=== PATIENT | female | born 1985 | race Caucasian/White ===

== ENCOUNTER 2020-11-03 15:47 | Outpatient (REF) | payer OTHER, SELFPAY ==
[2020-11-03 16:24] LABS: MANUAL DIFF FLAG NO
[2020-11-03 16:39] LABS: Basophils Absolute Auto 0.1 X10*3/uL (0.0-0.2); Basophils Percent Auto 0.4 % (0-2); Eosinophils Absolute Auto 0.2 X10*3/uL (0.0-0.4); Eosinophils Percent Auto 1.5 % (0-4); Hematocrit 40.9 % (37-47); Imm Gran Abs Auto 0.08 X10*3/uL (0.00-0.03); Imm Gran Pct Auto 0.7 % (0.0-0.4); Lymphocytes Absolute Auto 3.7 X10*3/uL (1.2-4.9); Mean Corpuscular HGB Conc 31.8 g/dl (31.0-35.0); Mean Corpuscular Hemoglobin 28.8 pg (27.0-33.0); Mean Corpuscular Volume 90.7 fL (80-98); Mean Platelet Volume 9.7 fL (9.4-12.3); Monocytes Absolute Auto 1.1 X10*3/uL (0.1-1.2); Monocytes Percent Auto 9.9 % (2-11); Neutrophils Absolute Auto 6.1 X10*3/uL (2.0-8.3); Neutrophils Percent Auto 54.5 % (45-73); Platelet Count 320 X10*3/uL (160-400); Red Blood Count 4.51 X10*6/uL (4.20-5.50); Red Cell Distribution Width 13.9 % (11.0-16.0); White Blood Count 11.2 X10*3/uL (4.8-10.8)
[2020-11-03 17:16] LABS: Alanine Aminotransferase 16 U/L (0-31); Albumin Level 4.2 g/dL (3.5-5.0); Alkaline Phosphatase 76 U/L (39-117); Anion Gap 14 (12-20); Aspartate Amino Transferase 13 U/L (5-31); Bilirubin Total 0.2 mg/dL (0.0-1.0); Blood Urea Nitrogen 11 mg/dL (9-16); Calcium 9.3 mg/dL (8.4-10.2); Carbon Dioxide 26 mmol/L (22-29); Chloride 102 mmol/L (96-108); Cholesterol 235 mg/dL; Estimated Glomerular Filt Rate > 60; Glucose Random 87 mg/dL (60-115); HDL Cholesterol 36 mg/dL; Potassium 4.1 mmol/l (3.3-5.1); Sodium 138 mmol/L (135-145); Total Protein 7.2 g/dL (6.5-8.0); Triglycerides 620 mg/dL
[2020-11-03 17:25] LABS: Thyroid Stimulating Hormone 1.77 uIU/mL (0.32-4.0)
== END 2020-11-03 15:48 | disposition home or self-care (01) ==
LOC: HO.LAB 15:47
PROVIDERS: PCP Internal Medicine; Visit Provider Internal Medicine
DX: Z00.00 Encounter for general adult medical examination without abnormal findings (principal); E78.2 Mixed hyperlipidemia; I10 Essential (primary) hypertension; R19.5 Other fecal abnormalities; Z13.31 Encounter for screening for depression
CPT/HCPCS: 36415; 80053; 80061; 84443; 85025

== ENCOUNTER 2020-11-15 10:07 | Outpatient (REF) | payer OTHER, SELFPAY ==
[2020-11-16 10:27] LABS: C. trachomatis RNA TMA NOT DETECTED (NOT DETECTED); N. gonorrhoeae RNA TMA NOT DETECTED (NOT DETECTED)
== END 2020-11-15 10:08 | disposition home or self-care (01) ==
LOC: HO.LAB 10:07
PROVIDERS: PCP Internal Medicine; Visit Provider Obstetrics & Gynecology
DX: Z30.09 Encounter for other general counseling and advice on contraception (principal)
CPT/HCPCS: 36415; 87491; 87591; 99212

== ENCOUNTER 2020-11-29 15:17 | Outpatient (REF) | payer OTHER, SELFPAY ==
[2020-11-29 16:31] LABS: HCG Quantitative < 2 mIU/mL
== END 2020-11-29 15:18 | disposition home or self-care (01) ==
LOC: HO.LAB 15:17
PROVIDERS: PCP Internal Medicine; Visit Provider Advanced Practice Midwife
DX: O20.0 Threatened abortion (principal); N92.6 Irregular menstruation, unspecified; Z3A.00 Weeks of gestation of pregnancy not specified; Z88.0 Allergy status to penicillin; Z39.1 Encounter for care and examination of lactating mother
CPT/HCPCS: 36415; 84702; 99212

== ENCOUNTER 2021-01-01 09:05 | Day surgery (SDC) | payer OTHER, SELFPAY ==
[2020-12-26 10:24] VITALS: BMI 33.8
--- NOTE | 2020-12-29 09:35 | HO.ANESPROP2 ---
Documented by User: Mel García 12/29/20 09:39 HPI - Anesthesia Eval Consult details Narrative: 35yo F for Colonoscopy Current PMFSH Active Problems Active Problems: All Active Problems (Updated 12/26/20 @ 10:25 by Katy Concepcion) Family planning (Acute) Lactating mother (Acute) Past Medical History Medical History (Updated 12/26/20 @ 10:25 by Katy Concepcion) Hx of renal calculi Family History Family History Maternal Aunt Uterine cancer Surgical History Surgical History (Updated 12/26/20 @ 10:25 by Katy Concepcion) Hx of hemorrhoidectomy Social History Social History Smoking Status: Never smoker Use of substances other than those prescribed or required for medical reasons: No Advance Directives Information Provided: No Meds Allergies Allergy/AdvReac Type Severity Reaction Status Date / Time penicillin G [Penicillin G] Allergy Severe DIFFICULTY Verified 11/29/20 15:30 BREATHING penicillin V Allergy Severe shortness Verified 12/26/20 10:27 of breath, anaphylaxis Home Medications Medication Instructions Recorded Confirmed Last Taken Type prenat.vits,dejan,ood-oabf-mpwly 1 tab PO DAILY 11/15/20 12/26/20 Unknown History Exam Exam Date and Time: December 29, 2020 0936 Height,Weight and Vital Signs: Height 5 ft 2 in Weight 83.915 kg Pertinent Lab Results Pertinent Lab Results: Laboratory Tests 11/03/20 11/03/20 16:05 16:05 WBC 11.2 H Hgb 13.0 Hct 40.9 Plt Count 320 Sodium 138 Potassium 4.1 Chloride 102 Carbon Dioxide 26 BUN 11 Creatinine 0.74 Assessment and Plan Assessment Anesthesia Assessment: Chart Reviewed Documented by User: Naren Ocampo MD 01/01/21 09:52 PMFSH Past Medical History Medical History (Updated 12/26/20 @ 10:25 by Katy Concepcion) Hx of renal calculi Family History Family History Maternal Aunt Uterine cancer Surgical History Surgical History (Updated 12/26/20 @ 10:25 by Katy Concepcion) Hx of hemorrhoidectomy Social History Social History Smoking Status: Never smoker Use of substances other than those prescribed or required for medical reasons: No Advance Directives Information Provided: No Meds Allergies Allergy/AdvReac Type Severity Reaction Status Date / Time penicillin G [Penicillin G] Allergy Severe DIFFICULTY Verified 11/29/20 15:30 BREATHING penicillin V Allergy Severe shortness Verified 12/26/20 10:27 of breath, anaphylaxis Home Medications Medication Instructions Recorded Confirmed Last Taken Type prenat.vits,dejan,dvr-uwkf-zvqnm 1 tab PO DAILY 11/15/20 12/26/20 Unknown History Exam Airway Mallampati Class: I TM Dist: >3cm Neck ROM: Full Loose/Missing/Broken Teeth: No Heart: RRR Lungs: NL Assessment and Plan Assessment Anesthesia Assessment: Anesthesia Plan Discussed and Chart Reviewed Final Anesthetic Review NPO: Yes ASA Class: II Final Preanesthetic Review: No Changes in Pt Med Stat, Meds/Allgs Chart Reviewed, Consent Obtained/Reviewed and Anes Risks/Benef Reviewed Patient Risk: Low Procedure Risk: Low Anesthetic Plan Anesthetic Plan: MAC: Disposition: Standard PACU
[2021-01-01 09:39] VITALS: BP 125/69; PULSE 74; RESP 16; TEMP 36.9; O2SAT 97
[2021-01-01 09:49] LABS: UPreg QC Valid YES; Urine Pregnancy NEGATIVE (NEGATIVE)
[2021-01-01] MEDS: Lactated Ringers 1,000 ML 100 ML IVCONT (10:23)
[2021-01-01 11:01] VITALS: BP 102/60; PULSE 74; RESP 18; TEMP 37; O2SAT 98
--- NOTE | 2021-01-01 11:05 | PM.OP ---
Brief Operative Note Date of Service: 01/01/21 Pre-op diagnosis: Rectal bleeding, diarrhea Post-op diagnosis: other (Internal hemorrhoids, R/O microscopic colitis) Procedure: Colonoscopy to the cecum and TI with biopsies Surgeon: Landon Vega Anesthesia: MAC Estimated blood loss (mL): 3.0 Pathology: other (A. Terminal ileum B. Ascending colon C. Descending colon) Condition: stable Disposition: PACU
[2021-01-01 11:16] VITALS: BP 114/46; PULSE 75; RESP 18; TEMP 36.8; O2SAT 99
--- NOTE | 2021-01-01 11:18 | OP_ITS ---
SURGEON: Landon Vega MD INDICATIONS: The patient presents for evaluation of diarrhea and hematochezia. Full consent has been obtained from her for this, including risks of bleeding and perforation. PREOPERATIVE DIAGNOSIS: POSTOPERATIVE DIAGNOSIS: PROCEDURE PERFORMED: Colonoscopy to the cecum and terminal ileum with biopsies. ESTIMATED BLOOD LOSS: COMPLICATIONS: ANESTHESIA: Monitored anesthesia care. ASSISTANTS: SPECIMENS: PREOPERATIVE DIAGNOSES: Diarrhea and hematochezia. POSTOPERATIVE DIAGNOSES: Diarrhea and hematochezia, rule out microscopic colitis, internal hemorrhoids. DESCRIPTION OF PROCEDURE: The patient was placed in the left lateral decubitus position. The digital rectal exam revealed some minimal evidence of a skin tag, but no evidence of any definitive hemorrhoids. There was no perianal disease otherwise. The Olympus video pediatric colonoscope was entered into the rectum and advanced easily to the cecum. Once in the cecum, I did identify normal-appearing cecal pouch with appendiceal orifice and a normal-appearing ileocecal valve. The terminal ileum was cannulated and appeared completely normal. Biopsies were obtained. The scope was withdrawn back in the colon. The entire cecum and ileocecal valve appeared normal. The scope was slowly withdrawn assessing all mucosal surfaces carefully. Preparation was excellent. I did not visualize any sign of polyps, colitis, nor angiodysplasia. Random biopsies were obtained in the ascending and descending colon. In the rectum, scope was retroflexed visualizing internal hemorrhoidal tissue, but no other pathology. The rectal mucosa appeared normal. The scope was straightened out and withdrawn from the patient. She tolerated the procedure well and was returned to the recovery area in stable condition. IMPRESSION: 1. Internal hemorrhoids. 2. Rule out microscopic colitis. PLAN: The results of the biopsies will be checked. I do suspect that these biopsies will be normal. I suspect she has a component of some irritable bowel syndrome and perianal bleeding. She was advised to try some fiber supplement such as Metamucil, as well as Imodium on a p.r.n. basis. She was advised to see me in several months for a followup visit. If the symptoms of rectal bleeding and/or rectal pain persists, then she would need to see Dr. Dominguez again regarding further evaluation of that. MD RAHUL Elliott/LAUREN / [phone]
== END 2021-01-01 12:16 | disposition home or self-care (01) ==
PROVIDERS: Nurse Practitioner; PCP Internal Medicine; Visit Provider Internal Medicine
PROC: 0DJD8ZZ Inspection of Lower Intestinal Tract, Via Natural or Artificial Opening Endoscopic (ICD-10-PCS; CPT 45378; principal; 2021-01-01 09:20)
DX: K62.5 Hemorrhage of anus and rectum (principal); R19.7 Diarrhea, unspecified; K64.8 Other hemorrhoids; Z87.442 Personal history of urinary calculi; Z88.0 Allergy status to penicillin
CPT/HCPCS: 45380; 81025; 88305

== ENCOUNTER 2021-10-01 10:57 | Outpatient (REF) | payer OTHER, SELFPAY ==
--- NOTE | ~2021-10-01 | US_ITS ---
EXAMINATION: US OBSTETRICAL ULTRASOUND CLINICAL INFORMATION: Threatened . COMPARISON: Ultrasound OB 04/21/2020. LMP: 07/26/2021. Gestational age by maternal dates is 9 weeks 4 days. Estimated date of delivery by maternal dates is 05/02/2022. TECHNIQUE: Routine transit ultrasound pelvis is performed. FINDINGS: There is a single intrauterine gestational sac with visible yolk sac, embryo/fetus, and cardiac activity. There is small subarachnoid bleed difficult to measure due to irregular shape. There is a hypoechoic complex area in the anterior chorion, ? etiology. HR: 169 beats per minute. The yolk sac is visualized. CRL (crown rump length): 0.46 cm . WAI (estimated date of delivery): 6 +/- 4 days. MATERNAL ADNEXA: The right maternal ovary measures 3.9 x 2.8 x 2.4 cm. The left maternal ovary measures 2.8 x 2.0 x 1.7 cm. There is no significant maternal adnexal mass. No maternal pelvic ascites. US/US OB pelvic and transvaginal IMPRESSION: 1. Single intrauterine gestation with ultrasound gestational age of 6 weeks 2 days +/- 4 days. 2. Estimated date of delivery is 05/25/2022 +/- 4 days. 3. No maternal adnexal mass or pelvic ascites.
[2021-10-01 12:46] LABS: HCG Quantitative 10551 mIU/mL
[2021-10-01 15:16] LABS: CT PCR NOT DETECTED (Not Detect.); NG PCR NOT DETECTED (Not Detect.)
[2021-10-02 11:02] LABS: BV Int Neg Control Negative (Negative); BV Int Pos Control Positive (Positive)
== END 2021-10-01 10:58 | disposition home or self-care (01) ==
LOC: HO.LAB 10:57
PROVIDERS: PCP Internal Medicine; Visit Provider Advanced Practice Midwife
DX: O20.0 Threatened abortion (principal); Z20.2 Contact with and (suspected) exposure to infections with a predominantly sexual mode of transmission
CPT/HCPCS: 36415; 76801; 76817; 81025; 84702; 87480; 87491; 87510; 87591; 87660; 99212

== ENCOUNTER 2022-07-24 11:43 | Inpatient (IN) | payer OTHER, SELFPAY ==
--- NOTE | ~2022-07-24 | CT_ITS ---
EXAMINATION: CT HEAD WITHOUT CONTRAST CLINICAL INFORMATION: Syncope COMPARISON: None TECHNIQUE: Imaging was performed from the skull base to vertex without intravenous administration of contrast. This CT examination was performed using dose optimization techniques as appropriate, variously including the following: *Automated exposure control *Adjustment of mA and/or kV according to patient size (this includes techniques or standardized protocols for targeted exams where dose is matched to indication/reason for exam; i.e. extremities or head) *Use of iterative reconstruction technique Total exam dose length product: 693 mGy-cm FINDINGS: No intra or extra-axial fluid collection, hemorrhage, or mass. No ventriculomegaly. No midline shift or herniation. Basal cisterns are patent. Goncalves-white matter differentiation is maintained. No territorial encephalomalacia. No significant volume loss. There is no abnormal attenuation within the brain parenchyma. No calvarial fracture or soft tissue abnormality. The mastoid air cells and visualized portions of the paranasal sinuses are well aerated. CT/CT head/brain wo IV con IMPRESSION: 1. No acute intracranial pathology.
--- NOTE | ~2022-07-24 | CT_ITS ---
EXAMINATION: CT ABDOMEN AND PELVIS WITHOUT CONTRAST CLINICAL INFORMATION: Right lower quadrant right flank pain. History of stones COMPARISON: None TECHNIQUE: Multidetector volumetric imaging was performed from the superior aspect of the liver through the pubic symphysis. Sagittal and coronal reformatted images were obtained on the technologist's workstation. This CT examination was performed using dose optimization techniques as appropriate, variously including the following: *Automated exposure control *Adjustment of mA and/or kV according to patient size (this includes techniques or standardized protocols for targeted exams where dose is matched to indication/reason for exam; i.e. extremities or head) *Use of iterative reconstruction technique DLP: 678 mGy-cm FINDINGS: LUNG BASES: 3 mm left basilar calcified granuloma. Lung bases otherwise clear. LIVER, GALLBLADDER, AND BILIARY TREE: Diffuse hepatic hypoattenuation/steatosis. No liver lesion. No biliary ductal dilation. The gallbladder is unremarkable with no evidence of radiopaque gallstones, gallbladder wall thickening, or obvious pericholecystic inflammatory changes. PANCREAS: Unremarkable. SPLEEN: Unremarkable. ADRENAL GLANDS: Unremarkable. KIDNEYS AND URETERS: 4 small nonobstructing left renal calculi in the mid lower pole, largest approximately 3 mm in size in the midpole. No right renal calculi. No hydronephrosis. No renal lesion. No perinephric stranding. BLADDER: Mildly thick-walled appearance secondary to incomplete distention. GASTROINTESTINAL TRACT: Abnormal dilated appendix measuring up to 1 cm in diameter proximally with mild periappendiceal inflammatory fat stranding consistent with acute appendicitis. No evidence of perforation or abscess. No additional bowel wall thickening. No dilated bowel loops. No ascites or free air. ABDOMINAL WALL: No significant hernia is appreciated. LYMPH NODES: No lymphadenopathy VASCULAR: Normal caliber abdominal aorta. PELVIC VISCERA: Gynecologic structures are grossly unremarkable limited assessment. OSSEOUS STRUCTURES: Unremarkable. CT/CT abdomen pelvis wo IV con IMPRESSION: 1. Findings consistent with acute appendicitis. No evidence of perforation or abscess. 2. Small nonobstructing left renal calculi. No ureteral calculi or hydronephrosis. 3. Hepatic steatosis. This critical result was discussed with Dr. Whittaker at 7:45 PM on 07/24/2022 and it was ascertained that the content and urgency of the report was understood at the time of direct communication.
[2022-07-24 11:47] VITALS: BP 140/100; PULSE 79; O2SAT 100
[2022-07-24 12:48] VITALS: BP 144/92; PULSE 75; RESP 16; TEMP 36.3; O2SAT 95; BMI 32.9
[2022-07-24 13:39] LABS: MANUAL DIFF FLAG NO
[2022-07-24 13:42] LABS: Basophils Absolute Auto 0.1 X10*3/uL (0.0-0.2); Basophils Percent Auto 0.3 % (0-2); Eosinophils Percent Auto 0.1 % (0-4); Hematocrit 42.6 % (37.0-47.0); Hemoglobin 14.3 g/dl (12.0-16.0); Imm Gran Abs Auto 0.19 X10*3/uL (0.00-0.03); Imm Gran Pct Auto 0.9 % (0.0-0.4); Lymphocytes Absolute Auto 1.6 X10*3/uL (1.2-4.9); Lymphocytes Percent Auto 7.7 % (20-40); Mean Corpuscular HGB Conc 33.6 g/dl (31.0-35.0); Mean Corpuscular Hemoglobin 29.1 pg (27.0-33.0); Mean Corpuscular Volume 86.6 fL (80.0-98.0); Mean Platelet Volume 9.4 fL (9.4-12.3); Monocytes Absolute Auto 1.4 X10*3/uL (0.1-1.2); Monocytes Percent Auto 6.6 % (2-11); Neutrophils Absolute Auto 17.4 x10*3/uL (2.0-8.3); Neutrophils Percent Auto 84.4 % (45-73); Platelet Count 306 X10*3/uL (160-400); Red Blood Count 4.92 X10*6/uL (4.20-5.50); Red Cell Distribution Width 13.5 % (11.0-16.0); White Blood Count 20.7 X10*3/uL (4.8-10.8)
[2022-07-24 13:43] LABS: Appearance Urine Clear; Color Urine Yellow; Glucose Urine UA Negative (Negative); Leukocyte Esterase Urine Negative (Negative); Nitrite Urine Negative (Negative); Specific Gravity - Urine 1.025 (1.005-1.025); Urine Blood Negative (Negative); Urine Ketones 15 mg/dL (Negative); Urine Protein Trace mg/dL (Neg-Trace)
[2022-07-24 13:57] LABS: Alanine Aminotransferase 20 U/L (0-31); Albumin Level 4.7 g/dL (3.5-5.0); Alkaline Phosphatase 83 U/L (39-117); Anion Gap 17 (12-20); Aspartate Amino Transferase 19 U/L (5-31); Bilirubin Total 0.5 mg/dL (0.0-1.0); Blood Urea Nitrogen 13 mg/dL (9-16); Calcium 9.5 mg/dL (8.4-10.2); Carbon Dioxide 21 mmol/L (22-29); Chloride 103 mmol/L (96-108); Creatinine Clr Calc Pharmacy 101.3; Estimated Glomerular Filt Rate > 60; Glucose Random 100 mg/dL (60-115); Lipase 28 U/L (8-78); Potassium 4.3 mmol/L (3.3-5.1); Sodium 137 mmol/L (135-145)
--- NOTE | 2022-07-24 16:55 | ED_ITS ---
HPI - Nausea/Vomiting/Diarrhea General Chief complaint: Nausea/Vomiting/Diarrhea Stated complaint: ABD PAIN,N,V Time Seen by Provider: 07/24/22 16:48 Source: patient Mode of arrival: ambulatory Limitations: no limitations History of Present Illness HPI Narrative: 37-year-old female history of kidney stone she states she had multiple kidney stones she is presents emergency department with acute onset of right flank pain with associated vomiting she denies any diarrhea she denies any fevers chills she has got chronic rectal issues including bleeding she had to have an anoscope done here 1 year ago for the same thing that has not increased or changed she states that 2 months ago she did have tubal ligation but never followed up. She had been doing well she was actually able to go to work today but start him increased pain she went to see her primary care doctor but the pain got much worse she denies any dysuria or frequency. MD elicited complaint: nausea, vomiting, diarrhea, abdominal pain and flank pain Related Data Previous Rx's Medication Instructions Recorded vitamin with calcium 1 tab PO DAILY #100 tabs 10/01/21 no.72-iron 27 mg-folic acid 1 mg tablet ( Vitamins Plus Low Iron) Allergies Allergy/AdvReac Type Severity Reaction Status Date / Time penicillin G [Penicillin G] Allergy Severe DIFFICULTY Verified 07/24/22 12:52 BREATHING penicillin V Allergy Severe shortness Verified 07/24/22 12:52 of breath, anaphylaxis Review of Systems Review of Systems: Review of systems: General: Patient denies any fever chills recent illness or falls Musculoskeletal: Denies back pain or body aches or other injuries HEENT: denies headache, runny nose, ear pain Respiratory: denies shortness of breath, cough Cardiovascular: no chest pain or palpitations : denies dysuria, frequency Abdomen: nausea vomiting right-sided abdominal pain and flank pain Extremities: no swelling, no pain Skin: no diaphoresis Yes all other systems are reviewed and are negative PMFSH Past Medical History Medical History Anxiety Hx of renal calculi Surgical History Hx of hemorrhoidectomy Family History Family History Maternal Aunt Uterine cancer Social History Social History Advance Directives: No Advance Directives Information Provided: No Physical Exam Vital Signs: Vital Signs: Last Vital Signs Temp 102 F H 07/24/22 18:20 Pulse 80 07/24/22 17:22 Resp 18 07/24/22 17:22 BP 123/77 07/24/22 17:22 Pulse Ox 98 07/24/22 17:22 O2 Del Method 07/24/22 17:22 BMI result Body Mass Index 32.9 General: Well-appearing well-nourished in no signs of distress HEENT: Normocephalic atraumatic Neck: No signs of JVD, no masses no tenderness or lymphadenopathy Cardiovascular: Regular rate and rhythm Respiratory: Clear to auscultation bilaterally Abdomen: Soft nontender no masses rectal exam deferred she is not anemic she had chronic rectal bleeding and known hemorrhoids no CVA tenderness Extremities: Normal pedal pulses no signs of edema Skin: Dry warm no rashes Back: No tenderness full ROM MDM - Nausea/Vomiting/Diarrhea MDM Narrative Medical decision making narrative: Concern for nausea and vomiting with right quadrant pain with right flank pain and history of kidney stones. I will send the patient for CT scan and had a urine sample to see if the patient has a kidney stone. I will give the patient fluids and Toradol. 1925 Patient found to have a fever and nausea I will give zofran and tylenol I added on lactic and blood cultures the urine is negative she has no cough she did have recent surgery and elevated WBC count concern for intraabdominal in fection. 1947 Patient has acute appendicitis I will give cefepime and I will have the patient admitted. Medical Records Attestation: I reviewed the patient's medical records. Lab Data Lab results narrative: Patient 7 elevated white blood cell count but has been vomiting skin least marginalization elevation of the white blood cell count she is not anemic with rectal bleeding I do not think she needs a full rectal exam workup as been done in the past. Result diagrams: 07/24/22 13:34 07/24/22 13:34 Labs: Lab Results 07/24/22 07/24/22 07/24/22 Range/Units 13:20 13:20 13:34 WBC 20.7 H (4.8-10.8) X10*3/uL RBC 4.92 (4.20-5.50) X10*6/uL Hgb 14.3 (12.0-16.0) g/dl Hct 42.6 (37.0-47.0) % MCV 86.6 (80.0-98.0) fL MCH 29.1 (27.0-33.0) pg MCHC 33.6 (31.0-35.0) g/dl RDW 13.5 (11.0-16.0) % Plt Count 306 (160-400) X10*3/uL MPV 9.4 (9.4-12.3) fL Immature Gran % (Auto) 0.9 H (0.0-0.4) % Neut % (Auto) 84.4 H (45-73) % Lymph % (Auto) 7.7 L (20-40) % [place] % (Auto) 6.6 (2-11) % Eos % (Auto) 0.1 (0-4) % Baso % (Auto) 0.3 (0-2) % Lymph # (Auto) 1.6 (1.2-4.9) X10*3/uL [place] # (Auto) 1.4 H (0.1-1.2) X10*3/uL Eos # (Auto) 0.0 (0.0-0.4) X10*3/uL Baso # (Auto) 0.1 (0.0-0.2) X10*3/uL Abs Immat Gran (auto) 0.19 H (0.00-0.03) X10*3/uL Absolute Neuts (auto) 17.4 H (2.0-8.3) x10*3/uL Absolute Nucleated RBC 0.000 (0.0-0.012) X10*3/uL Nucleated RBC % (auto) 0.0 (0.0-0.2) /100WBC Sodium (135-145) mmol/L Potassium (3.3-5.1) mmol/L Chloride (96-108) mmol/L Carbon Dioxide (22-29) mmol/L Anion Gap (12-20) BUN (9-16) mg/dL Creatinine (0.5-1.4) mg/dL Estim Creat Clear Calc Estimated GFR Random Glucose (60-115) mg/dL Calcium (8.4-10.2) mg/dL Total Bilirubin (0.0-1.0) mg/dL AST (5-31) U/L ALT (0-31) U/L Alkaline Phosphatase (39-117) U/L Total Protein (6.5-8.0) g/dL Albumin (3.5-5.0) g/dL Lipase (8-78) U/L Urine Color Yellow Urine Appearance Clear Urine pH 6.0 (5.0-9.0) Ur Specific [place] 1.025 (1.005-1.025) Urine Protein Trace (Neg-Trace) mg/dL Urine Glucose (UA) Negative (Negative) mg/dL Urine Ketones 15 (Negative) mg/dL Urine Blood Negative (Negative) Urine Nitrite Negative (Negative) Ur Leukocyte Esterase Negative (Negative) Urine Test NEGATIVE (NEGATIVE) 07/24/22 Range/Units 13:34 WBC (4.8-10.8) X10*3/uL RBC (4.20-5.50) X10*6/uL Hgb (12.0-16.0) g/dl Hct (37.0-47.0) % MCV (80.0-98.0) fL MCH (27.0-33.0) pg MCHC (31.0-35.0) g/dl RDW (11.0-16.0) % Plt Count (160-400) X10*3/uL MPV (9.4-12.3) fL Immature Gran % (Auto) (0.0-0.4) % Neut % (Auto) (45-73) % Lymph % (Auto) (20-40) % [place] % (Auto) (2-11) % Eos % (Auto) (0-4) % Baso % (Auto) (0-2) % Lymph # (Auto) (1.2-4.9) X10*3/uL [place] # (Auto) (0.1-1.2) X10*3/uL Eos # (Auto) (0.0-0.4) X10*3/uL Baso # (Auto) (0.0-0.2) X10*3/uL Abs Immat Gran (auto) (0.00-0.03) X10*3/uL Absolute Neuts (auto) (2.0-8.3) x10*3/uL Absolute Nucleated RBC (0.0-0.012) X10*3/uL Nucleated RBC % (auto) (0.0-0.2) /100WBC Sodium 137 (135-145) mmol/L Potassium 4.3 (3.3-5.1) mmol/L Chloride 103 (96-108) mmol/L Carbon Dioxide 21 L (22-29) mmol/L Anion Gap 17 (12-20) BUN 13 (9-16) mg/dL Creatinine 0.76 (0.5-1.4) mg/dL Estim Creat Clear Calc 101.3 Estimated GFR > 60 Random Glucose 100 (60-115) mg/dL Calcium 9.5 (8.4-10.2) mg/dL Total Bilirubin 0.5 (0.0-1.0) mg/dL AST 19 D (5-31) U/L ALT 20 (0-31) U/L Alkaline Phosphatase 83 (39-117) U/L Total Protein 8.0 (6.5-8.0) g/dL Albumin 4.7 (3.5-5.0) g/dL Lipase 28 (8-78) U/L Urine Color Urine Appearance Urine pH (5.0-9.0) Ur Specific [place] (1.005-1.025) Urine Protein (Neg-Trace) mg/dL Urine Glucose (UA) (Negative) mg/dL Urine Ketones (Negative) mg/dL Urine Blood (Negative) Urine Nitrite (Negative) Ur Leukocyte Esterase (Negative) Urine Test (NEGATIVE) Critical Care Time Critical Care Time Critical Care Time: Yes Total Critical Care Time: 35 Attestation: acute appendicitis with rlq pain spoke with surgery and patient multipel evaluations. Discharge Plan Discharge Clinical Impression: Dehydration, Appendicitis Patient Disposition: Admitted As Inpatient Prescriptions: No Action Vitamin Plus Low Iron 27 mg iron- 1 mg tablet 1 tab PO DAILY Qty: 100 4RF
--- OUTSIDE RECORDS SUMMARY | 2022-07-24 17:16 | XMS_ITS | Continuity of Care Document ---
:1985 Author Organization [facility] Address [address] [place] [address]- Care Team Providers Name Role Phone Tete Sesay MD Primary Care Physician Encounter [facility] Date(s): 04/25/22 - 04/25/[address] [id number] Discharge Disposition: A-D/C Home Attending Physician: Radha Santana MD Admitting Physician: Radha Santana MD Referring Physician: Radha Santana MD Allergies, Adverse Reactions, Alerts Substance Reaction Severity Status penicillins Active Medications Depo-Estradiol cypionate 5 mg/ml intramuscular solution = 5 mg, Intramuscular, 0 Refills, Maintenance, 04/25/22 11:16:00 EDT, Partial fill upon patient request if the prescription is for a schedule II opioid drug. Start Date: 04/25/22 Status: OrderedElla 30 mg oral tablet 1 tablet = 30 mg, By Mouth, Once, # 1 tablet, 0 Refills, Soft Stop, 02/04/22 14:24:00 EDT, Tablet, [facility]/pharmacy #[id number], Partial fill upon patient request if the prescription is for a schedule II opioid drug., 157, cm, 01/29/22 12:13:00 EDT, Height, 85,... Start Date: 02/04/22 Status: Orderedibuprofen 600 mg oral tablet 600 mg, 1, tablet, By Mouth, 4 times a day, PRN, # 40 tablet, Refills 0, Tot. Refills 0, Acute 05/02/22 15:16:00 EDT, for pain, 04/25/22 15:16:00 EDT, Route to Pharmacy Electronically, [facility]/pharmacy #[id number], Partial fill upon patient request if the presc... Start Date: 04/25/22 Stop Date: 05/02/22 Status: OrderedoxyCODONE 5 mg oral tablet 5 mg, 1, tablet, By Mouth, Every 4 hours, PRN, # 12 tablet, Refills 0, Tot. Refills 0, Acute 05/02/22 15:17:00 EDT, as needed for pain, 04/25/22 15:16:00 EDT, Route to Pharmacy Electronically, [facility]/pharmacy #[id number], Partial fill upon patient request if t... Start Date: 04/25/22 Stop Date: 05/02/22 Status: OrderedTylenol 8 Hour 650 mg oral tablet, extended release 2 tablet = 1,300 mg, By Mouth, Every 8 hours, PRN as needed for pain, # 50 tablet, 0 Refills, Acute 05/02/22 15:16:00 EDT, 04/25/22 15:15:00 EDT, ER Tablet, [facility]/pharmacy #[id number], Partial fill upon patient request if the prescription is for a schedule II... Start Date: 04/25/22 Stop Date: 05/02/22 Status: Ordered Problem List Condition Effective Dates Status Health Status Informant Anxiety(Confirmed) Active Obese class II(Confirmed) Active Post traumatic stress Active disorder(Confirmed) Preeclampsia(Confirmed) 2008 Active Vital Signs Most recent to oldest [Reference 1 2 3 Range]: Weight 86.2 kg (04/25/22 11:17 AM) Oxygen Saturation [94-100 %] 97 % 96 % 98 % (04/25/22 6:15 PM) (04/25/22 6:00 PM) (04/25/22 5:45 P M) Pulse Rate [55-90 bpm] 75 bpm (04/25/22 11:17 AM) Blood Pressure [90-138/55-84 mm 131/58 mm Hg 132/62 mm Hg 116/67 mm Hg Hg] (04/25/22 6:15 PM) (04/25/22 6:00 PM) (04/25/22 5:45 P M) Respiratory Rate [16-30 br/min] 20 br/min 20 br/min 19 br/min (04/25/22 6:15 PM) (04/25/22 6:00 PM) (04/25/22 5:45 P M) Temperature [96.8-100.4 DegF] 97.2 DegF 97 DegF 97 .2 DegF (04/25/22 7:15 PM) (04/25/22 5:00 PM) (04/25/22 3:45 P M) Liters per Minute 3 L/min 3 L/min 3 L/min (04/25/22 4:30 PM) (04/25/22 4:15 PM) (04/25/22 4:00 P M) Mode of Delivery (Oxygen) Room air Room air Room a ir (04/25/22 6:15 PM) (04/25/22 6:00 PM) (04/25/22 5:45 P M) Blood pressure sites Arm, left (04/25/22 11:17 AM) Temperature Route Temporal Temporal Temporal (04/25/22 7:15 PM) (04/25/22 5:00 PM) (04/25/22 3:45 P M) Dry Weight 86.2 kg (04/25/22 11:17 AM) Weight Obtained Via Standing scale (04/25/22 11:17 AM) Dry Weight Obtained Via Standing scale (04/25/22 11:17 AM) Social History Social History Type Response Smoking Status Never (less than 100 in life time) entered on: 10/04/21 Sex
--- OUTSIDE RECORDS SUMMARY | 2022-07-24 17:16 | XMS_ITS | Continuity of Care Document ---
:1985 Author Organization [facility] Address [address] [place] [id number]- Care Team Providers Name Role Phone Shama HARRELL, Tete Kaye Primary Care Physician Encounter [facility] Date(s): 10/17/21 - 11/16/[address] [address]- Attending Physician: Tonny Banerjee Admitting Physician: AdmtrTonny Referring Physician: AdmtrTonny Allergies, Adverse Reactions, Alerts Substance Reaction Severity Status penicillins Active Medications NIFEdipine 60 mg oral tablet, extended release 60 mg, 1, tablet, By Mouth, Every 24 hours, # 30 tablet, Refills 3, Tot. Refills 3, Maintenance, 07/07/20 17:54:00 EDT, Route to Pharmacy Electronically, [facility]/pharmacy #[id number], 158, cm, 07/06/20 2:45:00 EDT, Height, 83, kg, 07/06/20 3:13:00 EDT, Dry Weight Start Date: 07/07/20 Status: OrderedPrenatal Multivitamins By Mouth, Daily, 0 Refills, Maintenance, 07/05/20 18:50:00 EDT Start Date: 07/05/20 Status: Ordered Problem List Condition Effective Dates Status Health Status Informant Anxiety(Confirmed) Active Post traumatic stress Active disorder(Confirmed) Preeclampsia(Confirmed) 2007 Active Social History Social History Type Response Smoking Status Never (less than 100 in life time) entered on: 10/04/21 Sex
--- OUTSIDE RECORDS SUMMARY | 2022-07-24 17:16 | XMS_ITS | Continuity of Care Document ---
:1985 Author Organization [facility] Address [address] [place] [id number]- Care Team Providers Name Role Phone Tete Sesay MD Primary Care Physician Encounter [facility] Date(s): 05/08/22 - 06/07/[address] [address] Attending Physician: Tonny Banerjee Admitting Physician: Tonny Banerjee Referring Physician: AdmtrTonny Allergies, Adverse Reactions, Alerts [...] Refills, Soft Stop, 02/04/22 14:24:00 EDT, Tablet, [facility]/pharmacy #[id number], Partial fill upon patient request if the prescription is for a schedule II opioid drug., 157, cm, 01/29/22 12:13:00 EDT, Height, 85,... Start Date: 02/04/22 Status: Ordered Problem List Condition Effective Dates Status Health Status Informant Anxiety(Confirmed) Active Obese class II(Confirmed) Active Post traumatic stress Active disorder(Confirmed) Preeclampsia(Confirmed) 2007 Active Social History Social History Type Response Smoking Status Never (less than 100 in life time) entered on: 10/04/21 Sex
--- OUTSIDE RECORDS SUMMARY | 2022-07-24 17:16 | XMS_ITS | Continuity of Care Document ---
:1985 Author Organization [facility] Address [address] [place] [address]- Care Team Providers Name Role Phone Tete Sesay MD Primary Care Physician [place] [facility] [place](s): 07/05/20 - 07/07/[address] [address]- [facility] Encounter Diagnosis Pre-eclampsia, severe (Discharge Diagnosis) - 07/06/20 state (Discharge Diagnosis) - 07/06/20 Chest tightness (Discharge Diagnosis) - 07/06/20 Dysuria (Discharge Diagnosis) - 07/07/20 Discharge Disposition: A-D/C Home Attending Physician: Felisha Gresham MD Admitting Physician: Felisha Gresham MD Referring Physician: Felisha Gresham MD Allergies, Adverse Reactions, Alerts Substance Reaction Severity Status penicillins Active Medications NIFEdipine 60 mg oral tablet, extended release 60 mg, 1, tablet, By Mouth, Every 24 hours, # 30 tablet, Refills 3, Tot. Refills 3, Maintenance, 07/07/20 17:54:00 EDT, Route to Pharmacy Electronically, [facility]/pharmacy #[id number], 158, cm, 07/06/20 2:45:00 EDT, Height, 83, kg, 07/06/20 3:13:00 EDT, Dry Weight Start Date: 07/07/20 Status: OrderedPrenatal Multivitamins By Mouth, Daily, 0 Refills, Maintenance, 07/05/20 18:50:00 EDT Start Date: 07/05/20 Status: Ordered Problem List Condition Effective Dates Status Health Status Informant Anxiety(Confirmed) Active Post traumatic stress Active disorder(Confirmed) Preeclampsia(Confirmed) 2007 Active Diagnosis Diagnosis Type Effective Dates Health Clinical Infor mant Status Service Pre-eclampsia, Discharge 07/06/20 severe Diagnosis state Discharge 07/06/20 Diagnosis Chest tightness Discharge 07/06/20 Diagnosis Dysuria Discharge 07/07/20 Diagnosis Procedures Procedure Date Related Diagnosis Body Site Status [facility] 2011 Completed Vital Signs Most recent to oldest 1 2 3 [Reference Range]: Height 158 cm 158 cm (07/06/20 2:45 AM) (07/05/20 6:48 PM) Weight 83 kg 83 kg 83.9 kg (07/07/20 8:36 AM) (07/06/20 2:45 AM) (07/05/20 6:3 4 PM) Oxygen Saturation [94-100 98 % 98 % 97 % %] (07/07/20 6:07 PM) (07/07/20 4:00 PM) (07/07/20 2:0 2 PM) Pulse Rate [55-90 bpm] 84 bpm 75 bpm 82 bpm (07/06/20 6:48 AM) (07/06/20 4:45 AM) (07/06/20 2:4 5 AM) Body Mass Index 33.25 [18.5-24.99] *>HHI* (07/06/20 2:45 AM) Blood Pressure 127/76 mm Hg 124/71 mm Hg 107/78 mm Hg [90-138/55-84 mm Hg] (07/07/20 6:07 PM) (07/07/20 4:00 PM) ( 0 2:02 PM) Respiratory Rate [16-30 18 br/min 18 br/min 17 br/mi n br/min] (07/07/20 6:07 PM) (07/07/20 4:00 PM) (07/07/20 2:0 2 PM) Temperature [96.8-100.4 98.6 DegF 98.0 DegF 98.2 Deg F DegF] (07/06/20 10:14 PM) (07/06/20 2:00 PM) (07/06/20 7: 30 AM) Mode of Delivery (Oxygen) Room air Room air Room a ir (07/07/20 4:00 AM) (07/06/20 6:10 PM) (07/06/20 6:0 0 PM) Blood pressure sites Arm, right Arm, right Arm, right (07/07/20 4:00 AM) (07/06/20 7:30 AM) (07/06/20 6:4 8 AM) Temperature Route Oral Oral Oral (07/06/20 10:14 PM) (07/06/20 2:00 PM) (07/06/20 7: 30 AM) Dry Weight 83 kg (07/06/20 2:45 AM) Weight Obtained Via Patient/family stated Standing scale (07/06/20 2:45 AM) (07/05/20 6:34 PM) Social History Social History Type Response Smoking Status Never smoker entered on: 04/06/15 Sex
--- OUTSIDE RECORDS SUMMARY | 2022-07-24 17:16 | XMS_ITS | Continuity of Care Document ---
:1985 Author [facility] Address Unavailable , Care Team Providers Name Role Phone Tete Sesay MD Primary Care Physician Encounter [facility] [place] Date(s): 10/29/21 - 11/28/21 [facility] Attending Physician: Tonny Banerjee Admitting Physician: Tonny Banerjee Referring Physician: Tonny Banerjee Allergies, Adverse Reactions, Alerts Substance Reaction Severity Status penicillins Active Medications NIFEdipine 60 mg oral tablet, extended release 60 mg, 1, tablet, By Mouth, Every 24 hours, # 30 tablet, Refills 3, Tot. Refills 3, Maintenance, 07/07/20 17:54:00 EDT, Route to Pharmacy Electronically, [facility]/pharmacy #[id number], 158, cm, 07/06/20 2:45:00 EDT, Height, 83, kg, 07/06/20 3:13:00 EDT, Dry Weight Start Date: 07/07/20 Status: OrderedPrenatal Multivitamins By Mouth, Daily, 0 Refills, Maintenance, 07/05/20 18:50:00 EDT Start Date: 07/05/20 Status: Ordered Problem List Condition Effective Dates Status Health Status Informant Anxiety(Confirmed) Active Post traumatic stress Active disorder(Confirmed) Preeclampsia(Confirmed) 2008 Active Social History Social History Type Response Smoking Status Never (less than 100 in life time) entered on: 10/04/21 Sex
--- OUTSIDE RECORDS SUMMARY | 2022-07-24 17:16 | XMS_ITS | Continuity of Care Document ---
:1985 Author Organization [facility] Address [address] [place] [address]- Care Team Providers Name Role Phone Tete Sesay MD Primary Care Physician [place] [facility] [place](s): 09/28/21 - 09/29/[address] [address] Discharge Disposition: A-D/C Home Attending Physician: Barrington Dominguez DO Admitting Physician: Barrington Dominguez DO Referring Physician: Barrington Dominguez DO Allergies, Adverse Reactions, Alerts Substance Reaction Severity Status penicillins Active Medications NIFEdipine 60 mg oral tablet, extended release 60 mg, 1, tablet, By Mouth, Every 24 hours, # 30 tablet, Refills 3, Tot. Refills 3, Maintenance, 07/07/20 17:54:00 EDT, Route to Pharmacy Electronically, [facility]/pharmacy #[id number], 158, cm, 07/06/20 2:45:00 EDT, Height, 83, kg, 07/06/20 3:13:00 EDT, Dry Weight Start Date: 07/07/20 Status: OrderedPrenatal Multivitamins By Mouth, Daily, 0 Refills, Maintenance, 07/05/20 18:50:00 EDT Start Date: 07/05/20 Status: Ordered Problem List Condition Effective Dates Status Health Status Informant Anxiety(Confirmed) Active Post traumatic stress Active disorder(Confirmed) Preeclampsia(Confirmed) 2007 Active Vital Signs Most recent to oldest [Reference Range]: 1 2 Weight 86.1 kg (09/28/21 9:59 PM) Oxygen Saturation [94-100 %] 100 % (09/28/21 9:59 PM) Pulse Rate [55-90 bpm] 79 bpm (09/28/21 9:59 PM) Blood Pressure [90-138/55-84 mm Hg] 154/83 mm Hg *H* (09/28/21 9:59 PM) Respiratory Rate [16-30 br/min] 17 br/min (09/28/21 9:59 PM) Temperature [96.8-100.4 DegF] 98.4 DegF (09/28/21 9:59 PM) Blood pressure sites Arm, left (09/28/21 9:59 PM) Temperature Route Oral Oral (09/28/21 10:10 PM) (09/28/21 9:59 PM) Weight Obtained Via Standing scale (09/28/21 9:59 PM) Social History Social History Type Response Smoking Status Never smoker entered on: 04/06/15 Sex
--- OUTSIDE RECORDS SUMMARY | 2022-07-24 17:16 | XMS_ITS | Continuity of Care Document ---
:1985 Author Organization [facility] Address [address] [place] [address]- Care Team Providers Name Role Phone Tete Sesay MD Primary Care Physician En[place] [facility] [place] Date(s): 09/28/21 - 09/29/[address] [address]- Discharge Disposition: A-D/C Walkout Attending Physician: Not on Staff, Attending MD Admitting Physician: Not on Staff, Admitting MD Referring Physician: Not on Staff, Referring MD Allergies, Adverse Reactions, Alerts Substance Reaction Severity Status penicillins Active Medications NIFEdipine 60 mg oral tablet, extended release 60 mg, 1, tablet, By Mouth, Every 24 hours, # 30 tablet, Refills 3, Tot. Refills 3, Maintenance, 07/07/20 17:54:00 EDT, Route to Pharmacy Electronically, [facility]/pharmacy #[id number], 158, cm, 07/06/20 2:45:00 [...] Most recent to oldest [Reference Range]: 1 Oxygen Saturation [94-100 %] 100 % (09/28/21 7:59 PM) Pulse Rate [55-90 bpm] 83 bpm (09/28/21 7:59 PM) Blood Pressure [90-138/55-84 mm Hg] 143/77 mm Hg *H* (09/28/21 7:59 PM) Respiratory Rate [16-30 br/min] 19 br/min (09/28/21 7:59 PM) Temperature [96.8-100.4 DegF] 98.3 DegF (09/28/21 7:59 PM) Mode of Delivery (Oxygen) Room air (09/28/21 7:59 PM) Blood pressure sites Arm, left (09/28/21 7:59 PM) Temperature Route Oral (09/28/21 7:59 PM) Social History Social History Type Response Smoking Status Never smoker entered on: 04/06/15 Sex
--- OUTSIDE RECORDS SUMMARY | 2022-07-24 17:16 | XMS_ITS | Continuity of Care Document ---
:1985 Author Organization [facility] Address [address] [place] [address]- Care Team Providers Name Role Phone Tete Sesay MD [id number] Date[facility] - 05/29/[address] [address] Attending Physician: Not on Staff, Attending MD Allergies, Adverse Reactions, Alerts Substance Reaction [...] Soft Stop, 02/04/22 14:24:00 EDT, Tablet, [id number], Partial fill upon patient request if the [...]
--- OUTSIDE RECORDS SUMMARY | 2022-07-24 17:16 | XMS_ITS | Continuity of Care Document ---
:1985 Author Organization [facility] Address Unavailable , Care Team Providers Name Role Phone Shama HARRELL, Tete Kaye Primary Care Physician Encounter [facility] [place] Date(s): 09/17/21 - 10/17/21 [facility] Allergies, Adverse Reactions, Alerts Substance Reaction Severity Status penicillins Active Medications NIFEdipine 60 mg oral tablet, extended release 60 mg, 1, tablet, By Mouth, Every 24 hours, # 30 tablet, Refills 3, Tot. Refills 3, Maintenance, 07/07/20 17:54:00 EDT, Route to Pharmacy Electronically, [facility]/pharmacy #[id number], 158, cm, 07/06/20 2:45:00 [...]
--- OUTSIDE RECORDS SUMMARY | 2022-07-24 17:16 | XMS_ITS | Continuity of Care Document ---
:1985 [facility] Address [address] [place] [address]- Care Team Providers Name Role Phone Shama HARRELL, Tete Kaye Primary Care Physician Encounter [facility] [place] Date(s): 10/01/21 - 10/31/[address], [address] [place] [address] Allergies, Adverse Reactions, Alerts Substance Reaction Severity Status penicillins Active Medications NIFEdipine 60 mg oral tablet, extended release 60 mg, 1, tablet, By Mouth, Every 24 hours, # 30 tablet, Refills 3, Tot. Refills 3, Maintenance, 07/07/20 17:54:00 EDT, Route to Pharmacy Electronically, [facility]/pharmacy #[id number], 158, cm, 07/06/20 2:45:00 [...]
--- OUTSIDE RECORDS SUMMARY | 2022-07-24 17:16 | XMS_ITS ---
:1985 Author Organization [facility] Address [address] [place] [address] Care Team Providers Name Role Phone Landon Vega Unavailable Unavailable PROBLEMS Type Condition ICD9-CM Code [id number] Code Onset Condition SNO MED Code Dates Status Problem Rectal bleeding K62.5 Active 1206 3002 Problem Diarrhea R19.7 Active 08258458 ALLERGIES Substance Reaction Event Type Date Status Penicillin G Sodium Unknown Drug Allergy Dec, Active ENCOUNTERS Encounter Location Date Diagnosis [place] [address] [facility] [address] [place] [address] [place] [address], [facility] [address] [place] [address] [facility] Out[place] [address] [place] [address] 15 Dec, 2020 Diarrhea R19.7 ; [place] [id number] Hematochez ia K92.1 ; Other hemorrhoid s K64.8 and External hem orrhoid K64.[address] [place] [address], Re ctal bleeding K62.5 and [facility] [address] [place] Diarrhea R19.7 [phone] [place] [address], [facility] [address] [place] [address] [place] [address], [facility] [address] [place] [address] IMMUNIZATIONS Vaccine Route Administration Date Status Influenza Unknown Jun 20, 2020 Administered SOCIAL HISTORY Qualifiers Date Never Smoker REASON FOR REFERRAL FUNCTIONAL STATUS PLAN OF CARE Activity Details Follow Up prn Reason: Pending Test Pathology Future/Pending Procedure COLONOSCOPY 20201220 VITAL SIGNS Weight 185 lbs 2020-12-20 Height 62 in 2020-12-20 BMI 33.83 kg/m2 2020-12-20 Temperature 97.5 degrees Fahrenheit 2020-12-20 Blood pressure systolic 000 mm Hg 2020-12-20 Blood pressure diastolic 00 mm Hg 2020-12-20 MEDICATIONS Medication Instructions Dosage Frequency Start Date End Date Duration S tatus Active PROCEDURES Procedure Date Ordered Result Body Site BP SCR PRFRM RCMDD DEFIND SCR INTVL December 20, 2020 TOBACCO NON-USER December 20, 2020 DOC MEDS VERIFIED W/PT OR RE December 20, 2020 COLONOSCOPY AND BIOPSY January 01, 2021 RESULTS No Results REASON FOR VISIT Pt no show, patient presents today for rectal bleeding,diarrhea, PLEASE SCHEDULE 3 MONTH F/U, rectalbleeding,diarrhea, patient presents today for BLOOD IN STOOL, COVID Screen, New pt no show, patient presents today for BLOODY DIARRHEA X 6 MONTHS R/O IBD Insurance Providers [facility] [facility] Health Member Patient Patient Patient Patient Patient Subscriber Subscriber Subscriber Group Insurance Plan Plan Plan Plan ID Relationship Address Phone Name Date of ID Name Date of No Type Insurance Insurance Insurance Coverage to Subscriber Address Phone Name Dates Codey [phone] [place]y [place] [id number] [facility] [id number] Health CARREON Plan [facility] Plan [id number]
--- OUTSIDE RECORDS SUMMARY | 2022-07-24 17:16 | XMS_ITS | Continuity of Care Document ---
:1985 Author Organization [facility] Address Unavailable , Care Team Providers Name Role Phone Tete Sesay MD Primary Care [id number] Date(s): 09/20/21 - 11/28/21 [facility] Attending Physician: Not on Staff, Attending MD Referring Physician: Tete Sesay MD Allergies, Adverse Reactions, Alerts Substance Reaction Severity Status penicillins Active Medications NIFEdipine 60 mg oral tablet, extended release 60 mg, 1, tablet, By Mouth, Every 24 hours, # 30 tablet, Refills 3, Tot. Refills 3, Maintenance, 07/07/20 17:54:00 EDT, Route to Pharmacy Electronically, [facility]/pharmacy #[id number], 158, cm, 07/06/20 2:45:00 [...]
--- OUTSIDE RECORDS SUMMARY | 2022-07-24 17:16 | XMS_ITS | Continuity of Care Document ---
:1985 Author Organization [facility] Address [address] [place] [address]- Care Team Providers Name Role Phone Tete Sesay MD Primary Care Physician Encounter [facility] [place] Date(s): 04/29/22 - 05/29/[address] [address] Allergies, Adverse Reactions, Alerts Substance Reaction Severity [...] Soft Stop, 02/04/22 14:24:00 EDT, [facility]t, [id number], Partial fill upon patient request if the [...]
--- OUTSIDE RECORDS SUMMARY | 2022-07-24 17:16 | XMS_ITS | Continuity of Care Document ---
:1985 Author Organization [facility] Address [address] [place] [address]- Care Team Providers Name Role Phone Tete Sesay MD Primary Care [id number] Date(s): 04/19/22 - 06/07/[address] [address] Attending Physician: Not on Staff, Attending MD [...] Soft Stop, 02/04/22 14:24:00 EDT, Tablet, [id number], Partial fill upon patient request if the [...]
--- OUTSIDE RECORDS SUMMARY | 2022-07-24 17:16 | XMS_ITS | Continuity of Care Document ---
:1985 Author Organization [facility] Address [address] [place] [address]- Care Team Providers Name Role Phone Tete Sesay MD Primary Care Physician [facility] [facility] [place] Date(s): 10/04/21 - 10/05/[address] [address]- Encounter Diagnosis Spontaneous (Final) - 10/05/21 Discharge Disposition: A-D/C Home Attending Physician: Christina Walsh MD Admitting Physician: Christina [place] MD Referring Physician: Not on Staff, Referring MD Allergies, Adverse Reactions, Alerts Substance Reaction Severity Status penicillins Active Medications clotrimazole 1% vaginal cream with applicator 1 application, Vaginally, Daily at bedtime, for 7 days, # 21 Gm, 0 Refills, Acute 10/08/21 15:52:00 EST, 10/01/21 15:52:00 EST, Cream, [facility]/pharmacy #[id number], Partial fill upon patient request if the prescription is for a schedule II opioid drug., 1 appli... Start Date: 10/01/21 Stop Date: 10/08/21 Status: OrderedNIFEdipine 60 mg oral tablet, extended release 60 mg, 1, tablet, By Mouth, Every 24 hours, # 30 tablet, Refills 3, Tot. Refills 3, Maintenance, 07/07/20 17:54:00 EDT, Route to Pharmacy Electronically, [facility]/pharmacy #[id number], 158, cm, 07/06/20 2:45:00 EDT, Height, 83, kg, 07/06/20 3:13:00 EDT, Dry Weight Start Date: 07/07/20 Status: OrderedPrenatal Multivitamins By Mouth, Daily, 0 Refills, Maintenance, 07/05/20 18:50:00 EDT Start Date: 07/05/20 Status: Ordered Problem List Condition Effective Dates Status Health Status Informant Anxiety(Confirmed) Active Post traumatic stress Active disorder(Confirmed) Preeclampsia(Confirmed) 2008 Active Vital Signs Most recent to oldest 1 2 3 [Reference Range]: Height 157 cm (10/04/21 9:14 PM) Weight 85 kg (10/04/21 9:14 PM) Oxygen Saturation [94-100 100 % 97 % %] (10/04/21 11:51 PM) (10/04/21 9:14 PM) Pulse Rate [55-90 bpm] 77 bpm 83 bpm (10/04/21 11:51 PM) (10/04/21 9:14 PM) Blood Pressure 124/79 mm Hg 107/67 mm Hg 133/76 mm Hg [90-138/55-84 mm Hg] (10/04/21 11:51 PM) (10/04/21 9:48 PM) ( 9:14 PM) Respiratory Rate [16-30 14 br/min 20 br/min br/min] *L* (10/04/21 9:14 PM) (10/04/21 11:51 PM) Temperature [96.8-100.4 99.0 DegF DegF] (10/04/21 9:14 PM) Mode of Delivery (Oxygen) Room air Room air (10/04/21 11:51 PM) (10/04/21 9:14 PM) Blood pressure sites Arm, left Arm, left Arm, left (10/04/21 11:51 PM) (10/04/21 9:48 PM) (10/04/21 9:14 PM) Temperature Route Oral (10/04/21 9:14 PM) Dry Weight 85 kg (10/04/21 9:14 PM) Weight Obtained Via Patient/family stated (10/04/21 9:14 PM) Dry Weight Obtained Via Patient/family stated (10/04/21 9:14 PM) Social History Social History Type Response Smoking Status Never (less than 100 in life time) entered on: 10/04/21 Sex
[2022-07-24 17:22] VITALS: BP 123/77; PULSE 80; RESP 18; TEMP 36.9; O2SAT 98
[2022-07-24 17:55] LABS: UPreg QC Valid YES; Urine Pregnancy NEGATIVE (NEGATIVE)
[2022-07-24 18:20] VITALS: TEMP 38.8
[2022-07-24] MEDS: Ketorolac Tromethamine 15 MG/ML VIAL IVPUSH (18:20)
[2022-07-24] MEDS: 0.9 % Sodium Chloride 1,000 ML 999 ML IV (18:20)
[2022-07-24 19:48] VITALS: BP 140/74; PULSE 71; RESP 16; TEMP 37.5; O2SAT 100
[2022-07-24] MEDS: Acetaminophen 325 MG TABLET 650 MG PO (20:11)
[2022-07-24] MEDS: ondansetron HCL 4 MG/2 ML VIAL IVPUSH (20:11)
[2022-07-24] MEDS: cefEPime HCl 2 GM in 0.9 % Sodium Chloride 50 ML IV (20:21)
[2022-07-24] MEDS: Lactated Ringers 1,000 ML 100 ML IVCONT (20:21)
[2022-07-24] MEDS: levoFLOXacin/D5W 500 MG/100 ML PIGGYBACK 100 MG IV (20:36)
[2022-07-24 20:47] LABS: Lactic Acid 1.4 mmol/L (0.5-2.0)
[2022-07-24 20:53] LABS: COVID-19 Test Negative (Negative)
[2022-07-24] MEDS: metroNIDAZOLE/NS 500 MG/100 ML PIGGYBACK 100 MG IV (20:53)
--- NOTE | 2022-07-24 20:58 | PHA.MEDREC ---
Pharmacy Consult ? Medication Reconciliation Pharmacy has completed the medication reconciliation.
--- NOTE | 2022-07-24 21:51 | PC.NURSE ---
Pt requested to not have morphine at ordered time, Pt pain is well controlled with torodol and tylenol.
[2022-07-25] VITALS (21 sets, daily range): BP systolic 105–151; BP diastolic 54–100; PULSE 72–118; RESP 17–20; TEMP 36.3–37.4; O2SAT 96–100
--- NOTE | 2022-07-25 | ECG_ITS ---
Test Reason : cp Blood Pressure : / mmHG Vent. Rate : 091 BPM Atrial Rate : 091 BPM P-R Int : 126 ms QRS Dur : 070 ms QT Int : 346 ms P-R-T Axes : 061 042 052 degrees QTc Int : 425 ms Normal sinus rhythm Normal ECG When compared with ECG of 04-APR-2019 18:50, No significant change was found Referred By: Alicia Song Electronically Signed By:TASNEEM POSADA
--- NOTE | 2022-07-25 | EEG_ITS ---
This is a 16-channel EEG with an EKG lead. The patient is reported awake and asleep during the tracing. Background EEG rhythm during wakefulness is low amplitude fast with no obvious asymmetry or paroxysmal tendency. Photic stimulation does not produce any significant abnormality. Hyperventilation is not performed. Cardiac lead does not reveal any significant abnormality. IMPRESSION: Unremarkable EEG. MD ERYN Hardin/LAUREN / [id number]
--- NOTE | 2022-07-25 03:36 | P.HPGS_ITS ---
History of Present Illness History of Present Illness Date of Service: 07/26/22 Chief complaint: Appendicitis Narrative: Mayra Garner is a 37 year old female who is here for abdominal pain. She says this started when she woke up on the morning of Jul 24 at around 730AM. She describes this as being on the RLQ. She had multiple episodes of vomitting during the day. In view of her symptoms, she came to the ED last night. She says she has had no vomitting since she came to the ED. She describes low intensity pain on the RLQ, and states she actually feels comfortable at this time. Review of Systems Constitutional: Constitutional: Denies chills and Denies fever(s) Cardiovascular: Cardiovascular: Denies chest pain, Denies dyspnea and Denies dyspnea on exertion Respiratory: Respiratory: Denies cough, Denies dyspnea and Denies dyspnea on exertion Gastrointestinal: Gastrointestinal: Denies hematochezia and Denies change in bowel habits Genitourinary: Genitourinary: Denies hematuria Musculoskeletal: Musculoskeletal: Denies back pain and Denies limited range of motion Neurologic: Denies focal weakness and Denies convulsions Psychiatric: Psychiatric: Denies depression and Denies mood swings PMFSH Past Medical History Medical History Anxiety Hx of renal calculi Family History Family History Maternal Aunt Uterine cancer Surgical History Surgical History Hx of hemorrhoidectomy Social History Social History Household Members: Significant Other and Children Housing: House Do you presently have visiting nurse or other home services: No Alcohol intake: never Patient Tobacco Use Status: Never used Tobacco Substance Use Type: Marijuana Meds Allergies Allergy/AdvReac Type Severity Reaction Status Date / Time penicillin G [Penicillin G] Allergy Severe DIFFICULTY Verified 07/24/22 12:52 BREATHING penicillin V Allergy Severe shortness Verified 07/24/22 12:52 of breath, anaphylaxis Active Medications: Current Medications Lactated Ringer's (Lr) 1,000 mls @ 100 mls/hr IVCONT .Q10H ORAL Last Admin: 07/24/22 20:21 Dose: 100 mls/hr Levofloxacin (Levaquin) 500 mg in 100 mls @ 100 mls/hr IV Q24H COUNT INCLUDES THE [facility] Last Infusion: 07/24/22 22:17 Dose: Infused Metronidazole (Flagyl) 500 mg in 100 mls @ 100 mls/hr IV Q8H COUNT INCLUDES THE [facility] Last Infusion: 07/25/22 01:19 Dose: Infused Morphine Sulfate (Morphine Sulfate 4 Mg/Ml Cartridge) 3 mg IVPUSH Q3H COUNT INCLUDES THE [facility]; Protocol Last Admin: 07/25/22 02:32 Dose: Not Given Ondansetron HCl (Ondansetron Hcl 4 Mg/2 Ml Vial) 4 mg IVPUSH Q6H PRN PRN Reason: nausea Sodium Chloride (0.9 % Sodium Chloride Flush 3 Ml Syringe) 3 ml IVFLUSH QSHIFT COUNT INCLUDES THE [facility] Last Admin: 07/25/22 01:20 Dose: Not Given Physical Exam Vital Signs: Vital Signs: Last Vital Signs Temp 99.5 F 07/24/22 19:48 Pulse 71 07/24/22 19:48 Resp 16 07/24/22 19:48 BP 140/74 H 07/24/22 19:48 Pulse Ox 100 07/24/22 19:48 O2 Del Method 07/24/22 19:48 BMI result Body Mass Index 32.9 Const: General: comfortable and no acute distress Or ientation/consciousness: patient oriented x3 Neck: Neck: Yes no lymphadenopathy Resp: Auscultation: clear to auscultation bilaterally Cardio: Rhythm: regular rhythm GI: Other: mild tenderness to deep palpation on the RLQ Palpation (GI): Soft to palpation, nontender and no guarding Neuro: General: patient oriented x3 Results Results Labs: Short CBC 07/24/22 Range/Units 13:34 WBC 20.7 H (4.8-10.8) X10*3/uL Hgb 14.3 (12.0-16.0) g/dl Hct 42.6 (37.0-47.0) % Plt Count 306 (160-400) X10*3/uL BMP 07/24/22 13:34 Sodium 137 Potassium 4.3 Chloride 103 Carbon Dioxide 21 L BUN 13 Creatinine 0.76 Calcium 9.5 Liver Function 07/24/22 Range/Units 13:34 Total Bilirubin 0.5 (0.0-1.0) mg/dL AST 19 D (5-31) U/L ALT 20 (0-31) U/L Alkaline Phosphatase 83 (39-117) U/L Albumin 4.7 (3.5-5.0) g/dL Urine 07/24/22 07/24/22 Range/Units 13:20 13:20 Urine Color Yellow Urine Appearance Clear Urine pH 6.0 (5.0-9.0) Ur Specific [place] 1.025 (1.005-1.025) Urine Protein Trace (Neg-Trace) mg/dL Urine Glucose (UA) Negative (Negative) mg/dL Urine Test NEGATIVE (NEGATIVE) Additional studies: Laboratory Results WBC 20.7 X10*3/uL (4.8-10.8) H 07/24/22 13:34 RBC 4.92 X10*6/uL (4.20-5.50) 07/24/22 13:34 Hgb 14.3 g/dl (12.0-16.0) 07/24/22 13:34 Hct 42.6 % (37.0-47.0) 07/24/22 13:34 MCV 86.6 fL (80.0-98.0) 07/24/22 13:34 MCH 29.1 pg (27.0-33.0) 07/24/22 13:34 MCHC 33.6 g/dl (31.0-35.0) 07/24/22 13:34 RDW 13.5 % (11.0-16.0) 07/24/22 13:34 Plt Count 306 X10*3/uL (160-400) 07/24/22 13:34 MPV 9.4 fL (9.4-12.3) 07/24/22 13:34 Immature Gran % (Auto) 0.9 % (0.0-0.4) H 07/24/22 13:34 Neut % (Auto) 84.4 % (45-73) H 07/24/22 13:34 Lymph % (Auto) 7.7 % (20-40) L 07/24/22 13:34 [place] % (Auto) 6.6 % (2-11) 07/24/22 13:34 Eos % (Auto) 0.1 % (0-4) 07/24/22 13:34 Baso % (Auto) 0.3 % (0-2) 07/24/22 13:34 Lymph # (Auto) 1.6 X10*3/uL (1.2-4.9) 07/24/22 13:34 [place] # (Auto) 1.4 X10*3/uL (0.1-1.2) H 07/24/22 13:34 Eos # (Auto) 0.0 X10*3/uL (0.0-0.4) 07/24/22 13:34 Baso # (Auto) 0.1 X10*3/uL (0.0-0.2) 07/24/22 13:34 Abs Immat Gran (auto) 0.19 X10*3/uL (0.00-0.03) H 07/24/22 13:34 Absolute Neuts (auto) 17.4 x10*3/uL (2.0-8.3) H 07/24/22 13:34 Absolute Nucleated RBC 0.000 X10*3/uL (0.0-0.012) 07/24/22 13:34 Nucleated RBC % (auto) 0.0 /100WBC (0.0-0.2) 07/24/22 13:34 Sodium 137 mmol/L (135-145) 07/24/22 13:34 Potassium 4.3 mmol/L (3.3-5.1) 07/24/22 13:34 Chloride 103 mmol/L (96-108) 07/24/22 13:34 Carbon Dioxide 21 mmol/L (22-29) L 07/24/22 13:34 Anion Gap 17 (12-20) 07/24/22 13:34 BUN 13 mg/dL (9-16) 07/24/22 13:34 Creatinine 0.76 mg/dL (0.5-1.4) 07/24/22 13:34 Estim Creat Clear Calc 101.3 07/24/22 13:34 Estimated GFR > 60 07/24/22 13:34 Random Glucose 100 mg/dL (60-115) 07/24/22 13:34 Lactic Acid 1.4 mmol/L (0.5-2.0) 07/24/22 20:31 Calcium 9.5 mg/dL (8.4-10.2) 07/24/22 13:34 Total Bilirubin 0.5 mg/dL (0.0-1.0) 07/24/22 13:34 AST 19 U/L (5-31) D 07/24/22 13:34 ALT 20 U/L (0-31) 07/24/22 13:34 Alkaline Phosphatase 83 U/L (39-117) 07/24/22 13:34 Total Protein 8.0 g/dL (6.5-8.0) 07/24/22 13:34 Albumin 4.7 g/dL (3.5-5.0) 07/24/22 13:34 Lipase 28 U/L (8-78) 07/24/22 13:34 Urine Color Yellow 07/24/22 13:20 Urine Appearance Clear 07/24/22 13:20 Urine pH 6.0 (5.0-9.0) 07/24/22 13:20 Ur Specific [place] 1.025 (1.005-1.025) 07/24/22 13:20 Urine Protein Trace mg/dL (Neg-Trace) 07/24/22 13:20 Urine Glucose (UA) Negative mg/dL (Negative) 07/24/22 13:20 Urine Ketones 15 mg/dL (Negative) 07/24/22 13:20 Urine Blood Negative (Negative) 07/24/22 13:20 Urine Nitrite Negative (Negative) 07/24/22 13:20 Ur Leukocyte Esterase Negative (Negative) 07/24/22 13:20 Urine Test NEGATIVE (NEGATIVE) 07/24/22 13:20 COVID-19 ([facility]) Negative (Negative) 07/24/22 20:31 COVID-19 Clin Com See Note 07/24/22 20:31 Impressions Abdomen/Pelvis CT 07/24/22 18:29 IMPRESSION: 1. Findings consistent with acute appendicitis. No evidence of perforation or abscess. 2. Small nonobstructing left renal calculi. No ureteral calculi or hydronephrosis. 3. Hepatic steatosis. This critical result was discussed with Dr. Whittaker at 7:45 PM on 07/24/2022 and it was ascertained that the content and urgency of the report was understood at the time of direct communication. Assessment and Plan (1) Appendicitis: Status: Acute I have reviewed her CT scan and this shows some mild inflammatory changes in the appendix. There is no appendicolith seen. She feels better now but does have mild tenderness on exam. I explained to her the option of appendectomy. I reviewed the technique fo laparoscopic appendectomy and possibe open. I reviwed the risks including but not limited to bleeding, infections, injury to bowel, urinary tract, staple line leak, inherent risks of anesthesia. I explained option of nonoperative treatment with IV abx. She says she wants to proceed with laparoscopic appendectomy. She will be placed on the add-on list for today in the OR. Her exam is otherwise benign, and she appears comfortable. Quality Stroke Does the patient have a stroke diagnosis?: No VTE Prior VTE?: No VTE Risk Level:: Surgical - low VTE Device Contraindication: N/A - Device Ordered VTE Drug Contraindication: Treatment Not Indicated Procedures Date of Service Date of Service: 07/25/22
[2022-07-25] MEDS: metroNIDAZOLE/NS 500 MG/100 ML PIGGYBACK 100 MG IV (05:22)
[2022-07-25] MEDS: ondansetron HCL 4 MG/2 ML VIAL IVPUSH (05:36)
[2022-07-25 06:41] LABS: Hemoglobin 9.5 g/dl (12.0-16.0); Mean Corpuscular HGB Conc 32.8 g/dl (31.0-35.0); Mean Corpuscular Volume 88.4 fL (80.0-98.0); Mean Platelet Volume 9.5 fL (9.4-12.3); Platelet Count 211 X10*3/uL (160-400); Red Blood Count 3.28 X10*6/uL (4.20-5.50); Red Cell Distribution Width 13.5 % (11.0-16.0); White Blood Count 7.6 X10*3/uL (4.8-10.8)
--- NOTE | 2022-07-25 08:50 | PC.NURSE ---
RN TO RN REPORT GIVEN TO LORENZA ([facility]), PT AWARE OF PLAN OF CARE FOR SURGERY TODAY.
--- NOTE | 2022-07-25 09:37 | HO.ANESPROP2 ---
PMFSH Active Problems Active Problems: All Active Problems (Updated 07/24/22 @ 19:51 by Jassi Whittaker DO) Dehydration (Acute) Appendicitis (Acute) Threatened (Acute) Family planning (Acute) Lactating mother (Acute) Past Medical History Medical History Anxiety Hx of renal calculi Family History Family History Maternal Aunt Uterine cancer Family history of problems with anesthesia: No Surgical History Surgical History Hx of hemorrhoidectomy History of Problems with Anesthesia: No Social History Social History Alcohol intake: never Patient Tobacco Use Status: Never used Tobacco Use of substances other than those prescribed or required for medical reasons: Yes Substance Use Frequency: Daily Are you DNR?: No Advance Directives: No Advance Directives Information Provided: No Meds Allergies Allergy/AdvReac Type Severity Reaction Status Date / Time penicillin G [Penicillin G] Allergy Severe DIFFICULTY Verified 07/24/22 12:52 BREATHING penicillin V Allergy Severe shortness Verified 07/24/22 12:52 of breath, anaphylaxis Active Medications: Current Medications Lactated Ringer's (Lr) 1,000 mls @ 100 mls/hr IVCONT .Q10H ORAL Last Admin: 07/24/22 20:21 Dose: 100 mls/hr Levofloxacin (Levaquin) 500 mg in 100 mls @ 100 mls/hr IV Q24H ORAL Last Infusion: 07/24/22 22:17 Dose: Infused Metronidazole (Flagyl) 500 mg in 100 mls @ 100 mls/hr IV Q8H ORAL Last Admin: 07/25/22 05:22 Dose: 100 mls/hr Morphine Sulfate (Morphine Sulfate 4 Mg/Ml Cartridge) 3 mg IVPUSH Q3H ORAL; Protocol Last Admin: 07/25/22 05:22 Dose: Not Given Ondansetron HCl (Ondansetron Hcl 4 Mg/2 Ml Vial) 4 mg IVPUSH Q6H PRN PRN Reason: nausea Last Admin: 07/25/22 05:36 Dose: 4 mg Sodium Chloride (0.9 % Sodium Chloride Flush 3 Ml Syringe) 3 ml IVFLUSH QSHIFT ORAL Last Admin: 07/25/22 01:20 Dose: Not Given Home Medications Medication Instructions Recorded Confirmed Last Taken Type No Known Home Meds 07/24/22 07/24/22 Unknown History Exam Exam Date and Time: July 25, 2022 0937 Height,Weight and Vital Signs: Height 5 ft 2 in Weight 81.647 kg Last Vital Signs Temp 97.4 F 07/25/22 09:11 Pulse 77 07/25/22 09:11 Resp 18 07/25/22 09:11 BP 133/88 07/25/22 09:11 Pulse Ox 96 07/25/22 09:11 O2 Del Method 07/25/22 09:11 Pertinent Lab Results Pertinent Lab Results: Laboratory Tests 07/24/22 07/24/22 07/24/22 13:20 13:20 13:34 WBC 20.7 H RBC 4.92 Hgb 14.3 Hct 42.6 MCV 86.6 MCH 29.1 MCHC 33.6 RDW 13.5 Plt Count 306 MPV 9.4 Immature Gran % (Auto) 0.9 H Neut % (Auto) 84.4 H Lymph % (Auto) 7.7 L [place] % (Auto) 6.6 Eos % (Auto) 0.1 Baso % (Auto) 0.3 Lymph # (Auto) 1.6 [place] # (Auto) 1.4 H Eos # (Auto) 0.0 Baso # (Auto) 0.1 Abs Immat Gran (auto) 0.19 H Absolute Neuts (auto) 17.4 H Absolute Nucleated RBC 0.000 Nucleated RBC % (auto) 0.0 Sodium Potassium Chloride Carbon Dioxide Anion Gap BUN Creatinine Estim Creat Clear Calc Estimated GFR Random Glucose Lactic Acid Calcium Total Bilirubin AST ALT Alkaline Phosphatase Total Protein Albumin Lipase Urine Color Yellow Urine Appearance Clear Urine pH 6.0 Ur Specific [place] 1.025 Urine Protein Trace Urine Glucose (UA) Negative Urine Ketones 15 Urine Blood Negative Urine Nitrite Negative Ur Leukocyte Esterase Negative Urine Test NEGATIVE COVID-19 ([facility]) COVID-19 Clin Com 07/24/22 07/24/22 07/24/22 13:34 20:31 20:31 WBC RBC Hgb Hct MCV MCH MCHC RDW Plt Count MPV Immature Gran % (Auto) Neut % (Auto) Lymph % (Auto) [place] % (Auto) Eos % (Auto) Baso % (Auto) Lymph # (Auto) [place] # (Auto) Eos # (Auto) Baso # (Auto) Abs Immat Gran (auto) Absolute Neuts (auto) Absolute Nucleated RBC Nucleated RBC % (auto) Sodium 137 Potassium 4.3 Chloride 103 Carbon Dioxide 21 L Anion Gap 17 BUN 13 Creatinine 0.76 Estim Creat Clear Calc 101.3 Estimated GFR > 60 Random Glucose 100 Lactic Acid 1.4 Calcium 9.5 Total Bilirubin 0.5 AST 19 D ALT 20 Alkaline Phosphatase 83 Total Protein 8.0 Albumin 4.7 Lipase 28 Urine Color Urine Appearance Urine pH Ur Specific [place] Urine Protein Urine Glucose (UA) Urine Ketones Urine Blood Urine Nitrite Ur Leukocyte Esterase Urine Test COVID-19 ([facility]) Negative COVID-19 Clin Com See Note 07/25/22 06:21 WBC 7.6 RBC 3.28 L D Hgb 9.5 L D Hct 29.0 L D MCV 88.4 MCH 29.0 MCHC 32.8 RDW 13.5 Plt Count 211 D MPV 9.5 Immature Gran % (Auto) Neut % (Auto) Lymph % (Auto) [place] % (Auto) Eos % (Auto) Baso % (Auto) Lymph # (Auto) [place] # (Auto) Eos # (Auto) Baso # (Auto) Abs Immat Gran (auto) Absolute Neuts (auto) Absolute Nucleated RBC 0.000 Nucleated RBC % (auto) 0.0 Sodium Potassium Chloride Carbon Dioxide Anion Gap BUN Creatinine Estim Creat Clear Calc Estimated GFR Random Glucose Lactic Acid Calcium Total Bilirubin AST ALT Alkaline Phosphatase Total Protein Albumin Lipase Urine Color Urine Appearance Urine pH Ur Specific [place] Urine Protein Urine Glucose (UA) Urine Ketones Urine Blood Urine Nitrite Ur Leukocyte Esterase Urine Test COVID-19 ([facility]) COVID-19 Clin Com Airway Mallampati Class: II TM Dist: >3cm Neck ROM: Full Assessment and Plan Assessment Anesthesia Assessment: Anesthesia Plan Discussed and Chart Reviewed Final Anesthetic Review Family History of Problems with Anesthesia: No History of Problems with Anesthesia: No NPO: Yes ASA Class: II and Emergency Final Preanesthetic Review: No Changes in Pt Med Stat, Meds/Allgs Chart Reviewed, Consent Obtained/Reviewed and Anes Risks/Benef Reviewed Patient Risk: Intermediate Procedure Risk: Intermediate Anesthetic Plan Anesthetic Plan: GA Disposition: Standard PACU
--- NOTE | 2022-07-25 10:43 | P.OP_ITS ---
Operative Note Operative Note Date of Service: 07/25/22 Narrative: Preop diagnosis: Acute appendicitis Postop diagnosis: acute appendicitis Procedure: Laparoscopic appendectomy Surgeon: Wesley Dominguez MD medical assistant ob gyn: EMILY Rangel The patient is a 37-year-old female admitted last night because of right lower quadrant pain and tenderness with note of a scan showing acute appendicitis. She understood the technique of laparoscopic appendectomy. She has where the risks, benefits, and alternatives and had given consent to proceed She was brought to the operating room. She was placed supine under general anesthesia via endotracheal tube. A Becerra catheter was inserted. The abdomen was prepped and draped in the usual sterile fashion. A surgical time-out was done. The patient received appropriate preop antibiotics . A short supraumbilical incision was made on the skin using a blade 15. This was carried down through the full-thickness of the skin subcutaneous fat down to the fascia. Fascia was incised. The peritoneum was entered. Through this incision a Corey port was introduced. Pneumoperitoneum was introduced to a pressure of 15 mm hg. From here on the rest of procedure was done under vision with the laparoscope Using the 5 mm flat scope for laparoscopic visualization, I proceeded to insert a 5 port in the left lower quadrant through a small stab incision. A 2nd 5 mm port was also placed on the suprapubic margin through a small stab incision. Graspers were placed through these working ports. the patient was placed in head-down and [id number] position. I was able to visualize the cecum. By tracing this I was able to see the long appendix which was congested consistent with acute appendicitis with erythema. I applied a grasper at the distal 3rd of the appendix in gently retracted this to put this on stretch. I used the [place] dissector to create a mesenteric window at the base. I then positioned a 30 mm Endo-ELAYNE stapler across the base. This was fired to transect this. We had to apply this twice to achieve complete transection. I then used the LigaSure to divide the meso appendix. the appendix was retrieved through an endobag through the umbilical incision . There was note of a small bleeding vessel at 1 end of the staple line and the we applied as small clip across this for hemostasis. I did laparoscopic examination of the rest of the abdomen on all 4 quadrants. There was no other pathology. There was no evidence of any bowel injury. I positioned the omentum to cover the surgical site on the right lower quadrant. Once hemostasis was confirmed, I proceeded to then desufflate through the port sites. I removed all ports under vision with the laparoscope. The umbilical port removed was removed last. The fascia of the umbilical incision was closed with [id number] Dexon 0 stitch. Skin closure was achieved on all incisions using Dexon 4-0 subcuticular running sutures. All incisions were infiltrated with Marcaine 0.5% for postop analgesia. Dressings were applied. The procedure was completed . The patient tolerated procedure well. There were no immediate complications. Initial and final counts of sponges and instruments were correct. Estimated blood loss was about 25 cc The patient was extubated without difficulty and transferred to the recovery room with stable vital signs.
[2022-07-25] MEDS: fentaNYL citrate/PF 100 MCG/2 ML VIAL 50 MCG IVPUSH ×2 (11:06→13:07)
[2022-07-25] MEDS: Lactated Ringers 1,000 ML 100 ML IVCONT (13:06)
[2022-07-25] MEDS: oxyCODONE HCl Immed Release 5 MG TABLET PO ×2 (13:08→21:49)
[2022-07-25] MEDS: Acetaminophen 325 MG TABLET 650 MG PO (15:08)
[2022-07-25 16:50] LABS: Glucose, Whole Blood 223 mg/dL (60-115)
--- NOTE | 2022-07-25 16:50 | PM.EVENT ---
Event Note Date of Service: 07/26/22 Event Note: seen postop looks well says she is comfortable stable VS abd soft adequate pain control pain mgt she did have an episode of sensation of almost passing out transiently she says she was anxious BP was 117/54, HR 74 episode was transient now feels better likely dc home puja
[2022-07-25 17:57] LABS: Glucose, Whole Blood 255 mg/dL (60-115)
--- NOTE | 2022-07-25 17:59 | PC.NURSE ---
1640 pt sitting on side of bed, became very pale and dizzy, in and out of brief consciousness. Pt layed back in bed vitals 105/54, Hr 92, O2 99, pt diaphoretic, ice pack applied, pt awake and alert, doctor Alberto made aware 174 pt in bathroom with [employer], pt became pale, weak, diaphoretic, in and out of brief consciousness, rapid response called, pt brought back to bed, vitals 101/59, O2 99, HR 104, new orders for neuro consult for possible seizure activity, Heart monitor applied, nuero checks Q2 hours, pt awake and alert talking with provider
--- NOTE | 2022-07-25 18:19 | P.CONIM_ITS ---
History of Present Illness Data of Consult Service Date: 07/25/22 Requesting physician: Wesley Dominguez Primary Care Provider: Tete Sesay MD HPI Reason for consult: possible vasovagal vs seizure 37 year old female who is here for abdominal pain. She says this started when she woke up on the morning of Jul 24 at around 730AM. She describes this as being on the RLQ. She had multiple episodes of vomitting during the day. In view of her symptoms, she came to the ED last night.CT scan and this shows some mild inflammatory changes in the appendix. There is no appendicolith seen. She feels better now but does had mild tenderness?-s/p laproscopic surgery today. Patient's was seen during the rapid response this evening: Initially she was little bit drowsy but subsequently alert oriented, vital stable fingersticks 255. Patient was on the commode: Staff noted some shaking movement and patient was getting drowsy and pale. Patient did not had any tongue bite or any drooling or any incontinence before after or during the episode. Patient denies any history of seizure disorder or any family history of seizure or such episodes in the past. vitals 132/72, HR 115, O2 99%, temp 98.1, sats are also fine Review of Systems Review of Systems: Patient has abdominal soreness in the operation area otherwise denies any chest pain or shortness of breath or abdominal pain or fever chills or cough or phlegm or nausea vomiting or numbness or weakness. [facility] Medical History Anxiety Hx of renal calculi Family History Maternal Aunt Uterine cancer Surgical History Hx of hemorrhoidectomy Social History Household Members: Significant Other and Children Housing: House Do you presently have visiting nurse or other home services: No Alcohol intake: never Patient Tobacco Use Status: Never used Tobacco Substance Use Type: Marijuana Meds Allergies Allergy/AdvReac Type Severity Reaction Status Date / Time penicillin G [Penicillin G] Allergy Severe DIFFICULTY Verified 07/24/22 12:52 BREATHING penicillin V Allergy Severe shortness Verified 07/24/22 12:52 of breath, anaphylaxis Active Medications: Current Medications Acetaminophen (Acetaminophen 325 Mg Tablet) 650 mg PO Q6H PRN PRN Reason: Pain, Mild (Pain Scale 1-3) Last Admin: 07/25/22 15:08 Dose: 650 mg Lactated Ringer's (Lr) 1,000 mls @ 100 mls/hr IVCONT .Q10H [facility] Last Admin: 07/25/22 16:58 Dose: Not Given Ketorolac Tromethamine (Ketorolac Tromethamine 30 Mg/Ml Vial) 30 mg IM Q6H PRN PRN Reason: abdominal pain Midazolam HCl (Midazolam Hcl/Pf 2 Mg/2 Ml Vial) 2 mg IVPUSH Q15M PRN PRN Reason: Seizures Morphine Sulfate (Morphine Sulfate 4 Mg/Ml Cartridge) 3 mg IVPUSH Q3H [facility]; Protocol Last Admin: 07/25/22 17:24 Dose: Not Given Ondansetron HCl (Ondansetron Hcl 4 Mg/2 Ml Vial) 4 mg IVPUSH Q6H PRN PRN Reason: nausea Last Admin: 07/25/22 05:36 Dose: 4 mg Oxycodone HCl (Oxycodone Hcl Immed Release 5 Mg Tablet) 5 mg PO Q4H PRN PRN Reason: Pain, Moderate (Pain Scale 4-6 Last Admin: 07/25/22 13:08 Dose: 5 mg Sodium Chloride (0.9 % Sodium Chloride Flush 3 Ml Syringe) [facility] Last Admin: 07/25/22 16:09 Dose: Not Given Home Medications Medication Instructions Recorded Confirmed Last Taken Type No Known Home Meds 07/24/22 07/24/22 Unknown History Physical Exam Vital Signs and Narrative: Vital Signs: Last Vital Signs Temp 98.4 F 07/25/22 16:00 Pulse 74 07/25/22 16:57 Resp 20 07/25/22 16:00 BP 117/56 L 07/25/22 16:57 Pulse Ox 99 07/25/22 16:48 O2 Del Method 07/25/22 16:48 O2 Flow Rate 2 07/25/22 11:26 BMI result Body Mass Index 32.9 Appearance: Alert.? Oriented X3.? not in distress.? Eyes: Pupils equal, round and reactive to light.? Sclera nonicteric.? ENT: Pharynx normal.? Moist mucous membranes. cvs: rrr, [id number] . res: fair air entry,no rales or wheezing abd: no rebound or guarding , bs present. ext pulses present , no cyanosis . neuro: axo3 , nonfocal. Results Labs CBC and Chem 7: 07/25/22 06:21 07/24/22 13:34 Labs: Laboratory Results - last 24 hr 07/24/22 07/24/22 07/25/22 20:31 20:31 06:21 MCV 88.4 MCH 29.0 MCHC 32.8 RDW 13.5 Plt Count 211 D MPV 9.5 Absolute Nucleated RBC 0.000 Nucleated RBC % (auto) 0.0 POC Glucose Lactic Acid 1.4 COVID-19 ([facility]) Negative COVID-19 Clin Com See Note 07/25/22 07/25/22 16:45 17:52 MCV MCH MCHC RDW Plt Count MPV Absolute Nucleated RBC Nucleated RBC % (auto) POC Glucose 223 H 255 H Lactic Acid COVID-19 ([facility]) COVID-19 Clin Com Imaging Radiologist's Impressions: Impressions Abdomen/Pelvis CT 07/24/22 18:29 IMPRESSION: 1. Findings consistent with acute appendicitis. No evidence of perforation or abscess. 2. Small nonobstructing left renal calculi. No ureteral calculi or hydronephrosis. 3. Hepatic steatosis. This critical result was discussed with Dr. Whittaker at 7:45 PM on 07/24/2022 and it was ascertained that the content and urgency of the report was understood at the time of direct communication. Assessment and Plan (1) Vasovagal episode: Status: Acute Plan 37 year old female who is here for abdominal pain found to have possible appendicitis. 1. Possible appendicitis Status post laparoscopic surgery today Continue pain management as per primary team Gentle hydration, incentive valery,chest physio. 2. Possible vasovagal syncope versus seizure unlikely Will monitor on tele Orthostatic signs in the morning She improved to baseline, currently asymptomatic CT head, neuro checks, neurology evaluation added prn midozolam 3. dvt prophylax:mech devices as per primary team Obesity: Encouraged to lose weight. Above management discussed with the patient in detail length, she understand and in agreement with the plan, time spent 70 minute. Discussed with primary team.
--- NOTE | 2022-07-25 18:29 | PM.EVENT ---
Event Note Date of Service: 07/26/22 Event Note: patient again had an episode of almost passing out while in the bathroom nurse described her to have her eyes rolling backwards and appeared to have some jerking movement this lasted for few seconds she bounced back right away patient therefore seen and examined again she looks great, laughing now and talking while in bed with family says she feels great now and has any significant pain or neurologic symptoms vital signs 133/70, tachycardia likely had a vasovagal episode labs done - hemoglobin lower but she came in dehydrated earlier had received a lot of IV fluid abdomen remains soft seen by hospitalist service
[2022-07-25 19:13] LABS: Hematocrit 34.5 % (37.0-47.0); Hemoglobin 11.2 g/dl (12.0-16.0); Mean Corpuscular HGB Conc 32.5 g/dl (31.0-35.0); Mean Corpuscular Hemoglobin 28.9 pg (27.0-33.0); Mean Corpuscular Volume 88.9 fL (80.0-98.0); Mean Platelet Volume 9.8 fL (9.4-12.3); Platelet Count 348 X10*3/uL (160-400); Red Blood Count 3.88 X10*6/uL (4.20-5.50); Red Cell Distribution Width 13.8 % (11.0-16.0); White Blood Count 22.7 X10*3/uL (4.8-10.8)
[2022-07-25 19:26] LABS: Anion Gap 17 (12-20); Blood Urea Nitrogen 10 mg/dL (9-16); Carbon Dioxide 20 mmol/L (22-29); Chloride 103 mmol/L (96-108); Estimated Glomerular Filt Rate > 60; Glucose Random 220 mg/dL (60-115); Potassium 4.6 mmol/L (3.3-5.1); Sodium 135 mmol/L (135-145)
[2022-07-25] MEDS: Ketorolac Tromethamine 30 MG/ML VIAL IVPUSH (20:54)
[2022-07-26] VITALS: BP 135/83; PULSE 89; RESP 18; TEMP 36.8; O2SAT 98
[2022-07-26] MEDS: Morphine Sulfate 4 MG/ML CARTRIDGE 3 MG IVPUSH (00:30)
[2022-07-26 00:33] LABS: Amphetamine Screen Urine Not Detected (Not Detect); Barbiturates, Urine Not Detected (Not Detect); Benzodiazepines Screen Urine POSITIVE (Not Detect); Cannabinoid Screen Urine POSITIVE (Not Detect); Cocaine Screen Urine Not Detected (Not Detect); Fentanyl, urine POSITIVE (Not Detect); Opiate Screen Urine Not Detected (Not Detect); Phencyclidine Screen Urine Not Detected (Not Detect)
[2022-07-26] MEDS: 0.9 % Sodium Chloride Flush 3 ML SYRINGE IVFLUSH (00:37)
[2022-07-26] MEDS: Lactated Ringers 1,000 ML 100 ML IVCONT ×2 (00:40→11:42)
[2022-07-26 04:00] VITALS: BP 133/74; PULSE 86; RESP 18; TEMP 36.4; O2SAT 98
[2022-07-26 07:28] VITALS: BP 130/71; PULSE 99; RESP 18; TEMP 37.1; O2SAT 97
[2022-07-26] MEDS: oxyCODONE HCl Immed Release 5 MG TABLET PO (07:41)
[2022-07-26 07:43] VITALS: BP 139/66; PULSE 113
[2022-07-26 08:23] VITALS: BP 136/71; BP 150/77; PULSE 79; PULSE 95
--- NOTE | 2022-07-26 08:38 | P.PNGS_ITS ---
Subjective Subjective Date of Service: 07/26/22 <Mary Rangel PA-C - Last Filed: 07/26/22 08:43> 07/26/22 <Wesley Dominguez MD - Last Filed: 07/26/22 10:07> Interval history: Had vasovagal episode overnight. Seen by Dr. Dominguez and then hospitalist service. CT head ordered which was negative. Awaiting neurology consult and orthostatic vitals this am. Feels much better, pain is well controlled with analgesics. Tolerating solid diet. Has not been OOB after episode. Denies flatus. <Mary Rangel PA-C - Last Filed: 07/26/22 08:43> Physical Exam Vital Signs: Vital Signs: Last Vital Signs Temp 98.7 F 07/26/22 07:28 Pulse 95 07/26/22 08:23 Resp 18 07/26/22 07:28 BP 150/77 H 07/26/22 08:23 Pulse Ox 97 07/26/22 07:28 O2 Del Method 07/26/22 07:28 O2 Flow Rate 2 07/25/22 11:26 BMI result Body Mass Index 32.9 <Mary Rangel PA-C - Last Filed: 07/26/22 08:43> Const: General: comfortable, no acute distress and alert <ANDREW Molina Last Filed: 07/26/22 08:43> Orientation/consciousness: patient oriented x3 <Mary Rangel PA-C - Last Filed: 07/26/22 08:43> Resp: Effort & Inspection: normal respiratory effort <Mary Rangel PA-C - Last Filed: 07/26/22 08:43> Cardio: Rate: regular rate <ANDREW Molina Last Filed: 07/26/22 08:43> GI: Inspection: No distended and Yes incision (dressings c/d/i, umbilical dressing changed and pressure dressing applied) <ANDREW Molina Last Filed: 07/26/22 08:43> Palpation (GI): Soft to palpation, Tenderness to palpation present (GI) (incisional), no guarding and not rigid <ANDREW Molina Last Filed: 07/26/22 08:43> Skin: General skin exam: no rashes or lesions noted <Mary Rangel PA-C - Last Filed: 07/26/22 08:43> Neuro: General: patient oriented x3 <Mary Rangel PA-C - Last Filed: 07/26/22 08:43> Extrem: General: Yes no clubbing, cyanosis or edema <Mary Rangel PA-C - Last Filed: 07/26/22 08:43> Objective Data Active Medications Acetaminophen (Acetaminophen 325 Mg Tablet) 650 mg PO Q6H PRN PRN Reason: Pain, Mild (Pain Scale 1-3) Last Admin: 07/25/22 15:08 Dose: 650 mg Documented By: WINNIE Lactated Ringer's (Lr) 1,000 mls @ 100 mls/hr IVCONT .Q10H [facility] Last Admin: 07/26/22 00:40 Dose: 100 mls/hr Documented By: JOHN Ketorolac Tromethamine (Ketorolac Tromethamine 30 Mg/Ml Vial) 30 mg IVPUSH Q6H PRN PRN Reason: Pain, Moderate (Pain Scale 4-6 Last Admin: 07/25/22 20:54 Dose: 30 mg Documented By: JOHN Midazolam HCl (Midazolam Hcl/Pf 2 Mg/2 Ml Vial) 2 mg IVPUSH Q15M PRN PRN Reason: Seizures Morphine Sulfate (Morphine Sulfate 4 Mg/Ml Cartridge) 3 mg IVPUSH Q3H [facility]; Protocol Last Admin: 07/26/22 07:42 Dose: Not Given Documented By: WINNIE Non-Admin Reason: Patient Refused Ondansetron HCl (Ondansetron Hcl 4 Mg/2 Ml Vial) 4 mg IVPUSH Q6H PRN PRN Reason: nausea Last Admin: 07/25/22 05:36 Dose: 4 mg Documented By: RONAL Oxycodone HCl (Oxycodone Hcl Immed Release 5 Mg Tablet) 5 mg PO Q4H PRN PRN Reason: Pain, Moderate (Pain Scale 4-6 Last Admin: 07/26/22 07:41 Dose: 5 mg Documented By: WINNIE Sodium Chloride (0.9 % Sodium Chloride Flush 3 Ml Syringe) 3 ml IVFLUSH QSHIFT [facility] Last Admin: 07/26/22 00:37 Dose: 3 ml Documented By: JOHN <Mary Rangel PA-C - Last Filed: 07/26/22 08:43> Labs CBC & Chem 7: : 07/26/22 08:02 07/25/22 18:43 <Mary Rangel PA-C - Last Filed: 07/26/22 08:43> Labs: Laboratory Results - last 24 hr 07/25/22 07/25/22 07/25/22 16:45 17:52 18:43 MCV 88.9 MCH 28.9 MCHC 32.5 RDW 13.8 Plt Count 348 D MPV 9.8 Absolute Nucleated RBC 0.000 Nucleated RBC % (auto) 0.0 Anion Gap Estim Creat Clear Calc Estimated GFR POC Glucose 223 H 255 H Random Glucose Calcium Urine Opiates Screen Urine Fentanyl Screen Ur Barbiturates Screen Ur Phencyclidine Scrn Ur Amphetamines Screen U Benzodiazepines Scrn Urine Cocaine Screen U Marijuana (THC) Screen 07/25/22 07/25/22 18:43 23:56 MCV MCH MCHC RDW Plt Count MPV Absolute Nucleated RBC Nucleated RBC % (auto) Anion Gap 17 Estim Creat Clear Calc 81.0 Estimated GFR > 60 POC Glucose Random Glucose 220 H Calcium 9.0 Urine Opiates Screen Not Detected Urine Fentanyl Screen POSITIVE H Ur Barbiturates Screen Not Detected Ur Phencyclidine Scrn Not Detected Ur Amphetamines Screen Not Detected U Benzodiazepines Scrn POSITIVE H Urine Cocaine Screen Not Detected U Marijuana (THC) Screen POSITIVE H <Mary Rangel PA-C - Last Filed: 07/26/22 08:43> Microbiology Microbiology Results: Microbiology 07/24/22 20:31 Blood Culture - Preliminary Blood - Venous No growth after 24 hours. 07/24/22 20:31 Blood Culture - Preliminary Blood - Venous No growth after 24 hours. <Mary Rangel PA-C - Last Filed: 07/26/22 08:43> Procedures Date of Service Date of Service: 07/26/22 <Mary Rangel PA-C - Last Filed: 07/26/22 08:43> Progress Note: A&P Assessment and plan (1) Vasovagal episode: Status: Acute <Mary Rangel PA-C - Last Filed: 07/26/22 08:43> (2) Appendicitis: Status: Acute <Mary Rangel PA-C - Last Filed: 07/26/22 08:43> Assessment and Plan: says she feels well this AM no further episodes of ?syncope looks well abd soft no nausea tolerating diet stable VS likely dc home later today seen and examined independently - agree with EMILY Rangel <Wesley Dominguez MD - Last Filed: 07/26/22 10:07> (3) S/P laparoscopic appendectomy: Status: Acute <Mary Rangel PA-C - Last Filed: 07/26/22 08:43> Assessment and Plan: 37 year old female admitted with appendicitis now POD #1 s/p lap appy. Doing well this morning. VSS. Abd exam with appropriate post op tenderness. Dressings intact. She had a vasovagal episode last night and is waiting neurology eval. Once orthostatic vitals taken this morning, assuming normal, will get OOB and ambulate. If cleared by neurology/medicine, stable for discharge to home today. Educated no heavy lifting, f/u in office in [address] Dominguez. <Mary Rangel PA-C - Last Filed: 07/26/22 08:43> Time Spent With Patient Time: Total time spent is greater than 50% in coordination of care (as do cumented) at patient's floor/unit and/or counseling patient: <Mary Rangel PA-C - Last Filed: 07/26/22 08:43> Quality Stroke Does the patient have a stroke diagnosis?: No <Mary Rangel PA-C - Last Filed: 07/26/22 08:43> VTE Prior VTE?: No <Mary Rangel PA-C - Last Filed: 07/26/22 08:43> VTE Risk Level:: Surgical - low <Mary Rangel PA-C - Last Filed: 07/26/22 08:43> VTE Device Contraindication: N/A - Device Ordered <Mary Rangel PA-C - Last Filed: 07/26/22 08:43> VTE Drug Contraindication: Treatment Not Indicated <Mary Rangel PA-C - Last Filed: 07/26/22 08:43>
[2022-07-26 09:18] LABS: Hematocrit 27.9 % (37.0-47.0); Mean Corpuscular HGB Conc 32.3 g/dl (31.0-35.0); Mean Corpuscular Hemoglobin 29.2 pg (27.0-33.0); Mean Corpuscular Volume 90.6 fL (80.0-98.0); Mean Platelet Volume 10.2 fL (9.4-12.3); Platelet Count 285 X10*3/uL (160-400); Red Blood Count 3.08 X10*6/uL (4.20-5.50); White Blood Count 19.7 X10*3/uL (4.8-10.8)
[2022-07-26 10:31] LABS: Estimated Average Glucose 97 mg/dL
--- NOTE | 2022-07-26 11:38 | PM.NEUROCN ---
History of Present Illness Data of Consult Service Date: 07/26/22 Primary Care Provider: Tete Sesay MD [facility] Reason for consult: Syncopal 37 years old woman with past medical history of anxiety disorder was being treated for acute appendicitis and had laparoscopic appendicectomy. She was noted to be unresponsive were shaking while she was in commode. She reported another similar episode same day. She was not known to have any seizure disorder. She remembered feeling sweaty confused and lethargic and then she noted people tried to state her body. There was no incontinence related to this. Review of Systems Review of Systems: Recent significant nausea and vomiting and diagnosis of appendicitis is status post surgery [facility] Past Medical History Medical History Anxiety Hx of renal calculi Family History Family History Maternal Aunt Uterine cancer Surgical History Surgical History Hx of hemorrhoidectomy Social History Social History Household Members: Significant Other and Children Housing: House Do you presently have visiting nurse or other home services: No Alcohol intake: never Patient Tobacco Use Status: Never used Tobacco Substance Use Type: Marijuana Meds Allergies Allergy/AdvReac Type Severity Reaction Status Date / Time penicillin G [Penicillin G] Allergy Severe DIFFICULTY Verified 07/24/22 12:52 BREATHING penicillin V Allergy Severe shortness Verified 07/24/22 12:52 of breath, anaphylaxis Active Medications: Current Medications Acetaminophen (Acetaminophen 325 Mg Tablet) 650 mg PO Q6H PRN PRN Reason: Pain, Mild (Pain Scale 1-3) Last Admin: 07/25/22 15:08 Dose: 650 mg Lactated Ringer's (Lr) 1,000 mls @ 100 mls/hr IVCONT .Q10H [facility] Last Admin: 07/26/22 00:40 Dose: 100 mls/hr Ketorolac Tromethamine (Ketorolac Tromethamine 30 Mg/Ml Vial) 30 mg IVPUSH Q6H PRN PRN Reason: Pain, Moderate (Pain Scale 4-6 Last Admin: 07/25/22 20:54 Dose: 30 mg Midazolam HCl (Midazolam Hcl/Pf 2 Mg/2 Ml Vial) 2 mg IVPUSH Q15M PRN PRN Reason: Seizures Morphine Sulfate (Morphine Sulfate 4 Mg/Ml Cartridge) 3 mg IVPUSH Q3H [facility]; Protocol Last Admin: 07/26/22 07:42 Dose: Not Given Ondansetron HCl (Ondansetron Hcl 4 Mg/2 Ml Vial) 4 mg IVPUSH Q6H PRN PRN Reason: nausea Last Admin: 07/25/22 05:36 Dose: 4 mg Oxycodone HCl (Oxycodone Hcl Immed Release 5 Mg Tablet) 5 mg PO Q4H PRN PRN Reason: Pain, Moderate (Pain Scale 4-6 Last Admin: 07/26/22 07:41 Dose: 5 mg Sodium Chloride (0.9 % Sodium Chloride Flush 3 Ml Syringe) 3 ml IVFLUSH QSHIFT [facility] Last Admin: 07/26/22 10:43 Dose: Not Given Home Medications Medication Instructions Recorded Confirmed Last Taken Type No Known Home Meds 07/24/22 07/24/22 Unknown History Physical Exam Vital Signs: Vital Signs: Last Vital Signs Temp 98.7 F 07/26/22 07:28 Pulse 95 07/26/22 08:23 Resp 18 07/26/22 07:28 BP 150/77 H 07/26/22 08:23 Pulse Ox 97 07/26/22 07:28 O2 Del Method 07/26/22 07:28 O2 Flow Rate 2 07/25/22 11:26 BMI result Body Mass Index 32.9 Neuro: Other: she was alert and awake with normal spontaneity of speech fluency comprehension and affect. Face was symmetrical. Visual diaz are full. There was no pronator drift. Deep tendon reflexes were trace to absent with flexor plantars. Results Labs CBC & Chem 7: 07/26/22 08:02 07/25/22 18:43 Labs: Short CBC 07/25/22 07/26/22 Range/Units 18:43 08:02 WBC 22.7 H 19.7 H (4.8-10.8) X10*3/uL Hgb 11.2 L 9.0 L (12.0-16.0) g/dl Hct 34.5 L 27.9 L (37.0-47.0) % Plt Count 348 D 285 (160-400) X10*3/uL BMP 07/25/22 18:43 Sodium 135 Potassium 4.6 Chloride 103 Carbon Dioxide 20 L BUN 10 Creatinine 0.95 Calcium 9[address] did not reveal any significant abnormality. Drop in hemoglobin was noted and also drop in blood pressure. Microbiology Microbiology Results: Microbiology 07/24/22 20:31 Blood - Venous Blood Culture - Preliminary No growth after 24 hours. 07/24/22 20:31 Blood - Venous Blood Culture - Preliminary No growth after 24 hours. Assessment and Plan (1) Convulsive syncope: Status: Acute 37 years old woman who probably had an episode of convulsive syncope due to Pain medicine on board, sudden drop in H&H and low blood pressure. There was no previous history of seizure disorder. Exam was nonfocal and head CT was okay. to be on the safe side, a routine EEG is recommended, which can be done as an outpatient Procedures Date of Service Date of Service: 07/26/22
[2022-07-26 12:00] VITALS: BP 135/69; PULSE 88; RESP 18; TEMP 36.7; O2SAT 98
--- NOTE | 2022-07-26 12:19 | PM.DS ---
DS: Providers Provider Date of Service: 07/26/22 Date of admission: 07/24/22 20:00 Primary care physician: Tete Sesay MD Attending physician on admission: Wesley Dominguez Consults: 07/25/22 18:06 Consult to Neurology Routine Consulting Provider: [facility] Reason for consultation: ? vasovagal vs seizure like activity Has provider been notified: No 07/25/22 18:23 Consult to Hospitalist Stat Consulting Provider: Hospitalist Reason For Exam: vasal vagal ? seizures Attending physician on discharge: Wesley Dominguez DS: Diagnosis Discharge Diagnosis (1) Convulsive syncope: Status: Acute DS: Summary Hospital Course Hospital Course: BRIEF HPI: Mayra Garner is a 37 year old female who is here for abdominal pain. She says this started when she woke up on the morning of Jul 24 at around 730AM. She describes this as being on the RLQ. She had multiple episodes of vomiting during the day. In view of her symptoms, she came to the ED last night. She says she has had no vomiting since she came to the ED. She describes low intensity pain on the RLQ, and states she actually feels comfortable at this time. CT scan was obtained which showed some mild inflammatory changes in the appendix, no appendicolith seen. HOSPITAL COURSE: She was admitted to the surgical service under Dr. Dominguez. Treatment options of the acute appendicitis were discussed and she elected to proceed with surgery. On 07/25/22, a laparoscopic appendectomy was performed by Dr. Dominguez without complication. The patient tolerated the procedure well and was admitted for observation. She was noted to be unresponsive and shaking while she was in commode. Hospitalist service was consulted for evaluation and labs and CT head were obtained which showed no acute intracranial pathology. Neurology was also consulted who thought she had a convulsive syncope due narcotics and hypotension. They recommended EEG as outpatient. She felt well the following day and was well appearing. Her pain was well controlled and tolerating a solid diet. Her abdomen was benign with appropriate post op tenderness. Orthostatic vitals were obtained and were stable and she was ambulated. She was reevaluated later in the day and cleared for discharge by medicine. She was discharged to home on 07/26/22 in stable condition. She is to follow up with Dr. Dominguez in the office in 2 weeks and her PCP and neurology for outpatient EEG. Status at Discharge Functional status at discharge: independent ambulation Overall status at discharge: patient is progressing back to baseline Time Spent with Patient Time attestation: Total time spent providing and/or coordinating discharge services: Discharge coordination time: Greater than 30 minutes Quality: Safe Use of Opioids Does Pt have an Active Cancer Diagnosis on the Problem List?: No Quality: Stroke Does the patient have a stroke diagnosis?: No Physical Exam Vital Signs: Vital Signs: Last Vital Signs Temp 98.0 F 07/26/22 12:00 Pulse 88 07/26/22 12:00 Resp 18 07/26/22 12:00 BP 135/69 07/26/22 12:00 Pulse Ox 98 07/26/22 12:00 O2 Del Method 07/26/22 12:00 O2 Flow Rate 2 07/25/22 11:26 BMI result Body Mass Index 32.9 Const: General: no acute distress and alert Orientation/consciousness: patient oriented x3 Resp: Effort & Inspection: normal respiratory effort Cardio: Rate: regular rate GI: Inspection: No distended and Yes incision (dressings c/d/i) Palpation (GI): Soft to palpation, Tenderness to palpation present (GI) (mild, incisional), no guarding and not rigid Skin: General skin exam: no rashes or lesions noted Neuro: General: patient oriented x3 Extrem: General: Yes no clubbing, cyanosis or edema DS: Data Data Completed and Pending Pending studies at discharge: Pending at discharge 07/25/22 10:36 Surgical [PTH] Routine Labs on day of discharge: Laboratory Results - last 24 hr 07/25/22 07/25/22 07/25/22 16:45 17:52 18:43 WBC 22.7 H RBC 3.88 L Hgb 11.2 L Hct 34.5 L MCV 88.9 MCH 28.9 MCHC 32.5 RDW 13.8 Plt Count 348 D MPV 9.8 Absolute Nucleated RBC 0.000 Nucleated RBC % (auto) 0.0 Sodium Potassium Chloride Carbon Dioxide Anion Gap BUN Creatinine Estim Creat Clear Calc Estimated GFR POC Glucose 223 H 255 H Random Glucose Estimat Average Glucose Hemoglobin A1c % Calcium Urine Opiates Screen Urine Fentanyl Screen Ur Barbiturates Screen Ur Phencyclidine Scrn Ur Amphetamines Screen U Benzodiazepines Scrn Urine Cocaine Screen U Marijuana (THC) Screen 10/04/1007/25/22 07/26/22 18:43 23:56 08:02 WBC 19.7 H RBC 3.08 L D Hgb 9.0 L Hct 27.9 L MCV 90.6 MCH 29.2 MCHC 32.3 RDW 14.0 Plt Count 285 MPV 10.2 Absolute Nucleated RBC 0.000 Nucleated RBC % (auto) 0.0 Sodium 135 Potassium 4.6 Chloride 103 Carbon Dioxide 20 L Anion Gap 17 BUN 10 Creatinine 0.95 Estim Creat Clear Calc 81.0 Estimated GFR > 60 POC Glucose Random Glucose 220 H Estimat Average Glucose Hemoglobin A1c % Calcium 9.0 Urine Opiates Screen Not Detected Urine Fentanyl Screen POSITIVE H Ur Barbiturates Screen Not Detected Ur Phencyclidine Scrn Not Detected Ur Amphetamines Screen Not Detected U Benzodiazepines Scrn POSITIVE H Urine Cocaine Screen Not Detected U Marijuana (THC) Screen POSITIVE H 07/26/22 08:02 WBC RBC Hgb Hct MCV MCH MCHC RDW Plt Count MPV Absolute Nucleated RBC Nucleated RBC % (auto) Sodium Potassium Chloride Carbon Dioxide Anion Gap BUN Creatinine Estim Creat Clear Calc Estimated GFR POC Glucose Random Glucose Estimat Average Glucose 97 Hemoglobin A1c % 5.0 Calcium Urine Opiates Screen Urine Fentanyl Screen Ur Barbiturates Screen Ur Phencyclidine Scrn Ur Amphetamines Screen U Benzodiazepines Scrn Urine Cocaine Screen U Marijuana (THC) Screen Preliminary micro results at discharge 07/24/22 20:31 Blood Culture - Preliminary Blood - Venous No growth after 24 hours. 07/24/22 20:31 Blood Culture - Preliminary Blood - Venous No growth after 24 hours. Discharge Plan Discharge Anticipated Discharge Date/Time: 07/26/22 12:03 Patient Disposition: Home, Self-Care Discharge Diagnosis: laparoscopic appendectomy Referrals: Tete Sesay MD [Primary Care Provider] - 1 Week Francis Echavarria MD [Physician] - 2 Weeks Wesley Dominguez MD [Physician] - 2 Weeks Discharge Medications: New oxycodone 5 mg capsule 5 mg PO Q4H PRN (Reason: pain (scale score 7-10)) Qty: 26 0RF Rx Instructions: Partial Fill upon patient request. ibuprofen 600 mg tablet 600 mg PO Q6H PRN (Reason: abdominal pain) Qty: 30 1RF Discharge Orders: Discharge Order (Routine); Ordered 07/26/22 Ordered By: Mary Rangel Diet: Advance to usual diet Activity on Discharge: No heavy lifting Stand Alone Forms: Patient Portal Discharge page Activity Restrictions/Additional Instructions: If the incision area is tender, you may apply an ice pack for short intervals (No more than 20 minutes on, followed by at least 20 minutes off). Do not apply heat. Do not use creams, lotions, or topical antibiotics unless instructed to do so by your surgeon. These can cause infection or allergic reaction. Ok to shower 24 hours after your surgery. Remove bandaids in 2 days and replace. You have steri strips (small white cloth strips) covering your incision- these will fall off ~1 week. Follow up in office with Dr. Dominguez in 2 weeks. ([phone]) No heavy lifting (>10-20lbs) or strenuous activity! Call Your Doctor If: -Your temperature exceeds 101.5? F -You experience excessive pain or swelling -You have an unexpected reaction to medication -You have excessive bleeding -You experience continued vomiting/nausea -Your incision begins to separate -Your incision shows signs of infection such as increased redness, swelling, excessive pain, drainage (light blood or clear fluid is normal) or heat Care Plan Goals: Return to baseline health and gradual return to activity following recovery period. Health Concerns: acute appendicitis s/p laparoscopic appendectomy convulsive syncope Plan of Treatment: pain management f/u in office with Dr. Dominguez F/u with PCP and EEG Assessment: Improved
--- NOTE | 2022-07-26 12:27 | PM.EVENT ---
Event Note Date of Service: 07/26/22 Event Note: seen on noon rounds continue to feel well tolerating diet says she is ready to be discharged no further ?syncopal episodes looks well abd soft ok to dc home as per neuro - outpt EEG
--- NOTE | 2022-07-26 12:47 | HO.PM.IMPN ---
Subjective Subjective Date of Service: 07/26/22 Interval History: possible vasovagal episode. Review of Systems Denies any new complaint, orthostatic fine, Abdominal pain is also improved significantly. Physical Exam Vital Signs: Vital Signs: Last Vital Signs Temp 98.0 F 07/26/22 12:00 Pulse 88 07/26/22 12:00 Resp 18 07/26/22 12:00 BP 135/69 07/26/22 12:00 Pulse Ox 98 07/26/22 12:00 O2 Del Method 07/26/22 12:00 O2 Flow Rate 2 07/25/22 11:26 BMI result Body Mass Index 32.9 Appearance: Alert.? Oriented X3.? not in distress.? cvs: rrr, [id number] , no murmur res: clear to auscultation ,no rhonchii or wheezing abd: no rebound or guarding ,mild soarness laproscopic surgery area, no erythema/discharge, bs present. ext pulses present , no cyanosis . neuro: axo3 , nonfocal. Objective Data Active Medications Acetaminophen (Acetaminophen 325 Mg Tablet) 650 mg PO Q6H PRN PRN Reason: Pain, Mild (Pain Scale 1-3) Last Admin: 07/25/22 15:08 Dose: 650 mg Documented By: WINNIE Lactated Ringer's (Lr) 1,000 mls @ 100 mls/hr IVCONT .Q10H ORAL Last Admin: 07/26/22 11:42 Dose: 100 mls/hr Documented By: WINNIE Ketorolac Tromethamine (Ketorolac Tromethamine 30 Mg/Ml Vial) 30 mg IVPUSH Q6H PRN PRN Reason: Pain, Moderate (Pain Scale 4-6 Last Admin: 07/25/22 20:54 Dose: 30 mg Documented By: JOHN Midazolam HCl (Midazolam Hcl/Pf 2 Mg/2 Ml Vial) 2 mg IVPUSH Q15M PRN PRN Reason: Seizures Morphine Sulfate (Morphine Sulfate 4 Mg/Ml Cartridge) 3 mg IVPUSH Q3H ORAL; Protocol Last Admin: 07/26/22 11:43 Dose: Not Given Documented By: WINNIE Non-Admin Reason: Patient Refused Ondansetron HCl (Ondansetron Hcl 4 Mg/2 Ml Vial) 4 mg IVPUSH Q6H PRN PRN Reason: nausea Last Admin: 07/25/22 05:36 Dose: 4 mg Documented By: RONAL Oxycodone HCl (Oxycodone Hcl Immed Release 5 Mg Tablet) 5 mg PO Q4H PRN PRN Reason: Pain, Moderate (Pain Scale 4-6 Last Admin: 07/26/22 07:41 Dose: 5 mg Documented By: WINNIE Sodium Chloride (0.9 % Sodium Chloride Flush 3 Ml Syringe) 3 ml IVFLUSH QSHIFT ORAL Last Admin: 07/26/22 10:43 Dose: Not Given Documented By: WINNIE Non-Admin Reason: IV Running Labs CBC & Chem 7: 07/26/22 08:02 07/25/22 18:43 Labs: Laboratory Results - last 24 hr 07/25/22 07/25/22 07/25/22 16:45 17:52 18:43 MCV 88.9 MCH 28.9 MCHC 32.5 RDW 13.8 Plt Count 348 D MPV 9.8 Absolute Nucleated RBC 0.000 Nucleated RBC % (auto) 0.0 Anion Gap Estim Creat Clear Calc Estimated GFR POC Glucose 223 H 255 H Random Glucose Estimat Average Glucose Hemoglobin A1c % Calcium Urine Opiates Screen Urine Fentanyl Screen Ur Barbiturates Screen Ur Phencyclidine Scrn Ur Amphetamines Screen U Benzodiazepines Scrn Urine Cocaine Screen U Marijuana (THC) Screen 07/25/22 07/25/22 07/26/22 18:43 23:56 08:02 MCV 90.6 MCH 29.2 MCHC 32.3 RDW 14.0 Plt Count 285 MPV 10.2 Absolute Nucleated RBC 0.000 Nucleated RBC % (auto) 0.0 Anion Gap 17 Estim Creat Clear Calc 81.0 Estimated GFR > 60 POC Glucose Random Glucose 220 H Estimat Average Glucose Hemoglobin A1c % Calcium 9.0 Urine Opiates Screen Not Detected Urine Fentanyl Screen POSITIVE H Ur Barbiturates Screen Not Detected Ur Phencyclidine Scrn Not Detected Ur Amphetamines Screen Not Detected U Benzodiazepines Scrn POSITIVE H Urine Cocaine Screen Not Detected U Marijuana (THC) Screen POSITIVE H 07/26/22 08:02 MCV MCH MCHC RDW Plt Count MPV Absolute Nucleated RBC Nucleated RBC % (auto) Anion Gap Estim Creat Clear Calc Estimated GFR POC Glucose Random Glucose Estimat Average Glucose 97 Hemoglobin A1c % 5.0 Calcium Urine Opiates Screen Urine Fentanyl Screen Ur Barbiturates Screen Ur Phencyclidine Scrn Ur Amphetamines Screen U Benzodiazepines Scrn Urine Cocaine Screen U Marijuana (THC) Screen Microbiology Microbiology Results: Microbiology 07/24/22 20:31 Blood Culture - Preliminary Blood - Venous No growth after 24 hours. 07/24/22 20:31 Blood Culture - Preliminary Blood - Venous No growth after 24 hours. Assessment and Plan (1) Convulsive syncope: Status: Acute (2) Dehydration: Status: Acute Plan 37 year old female who is here for abdominal pain found to have possible appendicitis. 1. Possible appendicitis Status post laparoscopic surgery yesterday leucocytisis sec to above and surgery further management as per primary team continue to moniter 2. Possible vasovagal syncope versus consulsive episode due to pain med. Will monitor on tele Orthostatic signs fine CT head-fine, neuro checks fine, She improved to baseline, currently asymptomatic neurology evaluation appreciated -recomended outpatient EEG. 3. dvt? prophylax:mech devices as per primary team. Obesity:? Encouraged to lose weight. Above management discussed with the patient and the primary team in detail length. Quality Stroke Does the patient have a stroke diagnosis?: No VTE Prior VTE?: No VTE Risk Level:: Surgical - low VTE Device Contraindication: N/A - Device Ordered VTE Drug Contraindication: Treatment Not Indicated
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
== END 2022-07-26 14:26 | disposition home or self-care (01) | DRG 234 ==
LOC: HO.ED 19:51 → HO.EDOVER 20:04 → HO.S3 07-25 14:33 → HO.EDOVER 07-25 17:20 → HO.S3 07-25 17:23
PROVIDERS: Admitting Provider Surgery; Emergency Provider Student in an Organized Health Care Education/Training Program; PCP Internal Medicine; Responsible Provider Internal Medicine; Visit Provider Surgery
PROC: 0DTJ4ZZ Resection of Appendix, Percutaneous Endoscopic Approach (ICD-10-PCS; CPT 44970; principal; 2022-07-25 09:30)
DX: K35.80 Unspecified acute appendicitis (principal); F41.9 Anxiety disorder, unspecified; R55 Syncope and collapse; Z20.822 Contact with and (suspected) exposure to COVID-19; Z87.442 Personal history of urinary calculi; Z88.0 Allergy status to penicillin
CPT/HCPCS: 44970; 36415; 70450; 74176; 80048; 80053; 80307; 81003; 81025; 82947; 83036; 83605; 83690; 85025; 85027; 87040; 87635; 88304; 93005; 95816; 99285; J0692; J1100; J1580; J1885; J1956; J2250; J2270; J2405; J2550; J2795; J3010

== ENCOUNTER 2023-05-26 09:53 | Outpatient (REF) | payer OTHER, SELFPAY ==
[2023-05-26 10:33] LABS: MANUAL DIFF FLAG NO
[2023-05-26 10:36] LABS: Basophils Absolute Auto 0.1 X10*3/uL (0.0-0.2); Basophils Percent Auto 0.7 % (0-2); Eosinophils Absolute Auto 0.1 X10*3/uL (0.0-0.4); Eosinophils Percent Auto 1.5 % (0-4); Hemoglobin 13.4 g/dl (12.0-16.0); Imm Gran Abs Auto 0.06 X10*3/uL (0.00-0.03); Imm Gran Pct Auto 0.7 % (0.0-0.4); Lymphocytes Absolute Auto 3.4 X10*3/uL (1.2-4.9); Lymphocytes Percent Auto 38.8 % (20-40); Mean Corpuscular HGB Conc 31.9 g/dl (31.0-35.0); Mean Corpuscular Hemoglobin 28.9 pg (27.0-33.0); Mean Corpuscular Volume 90.7 fL (80.0-98.0); Mean Platelet Volume 9.9 fL (9.4-12.3); Monocytes Absolute Auto 0.8 X10*3/uL (0.1-1.2); Monocytes Percent Auto 8.8 % (2-11); Neutrophils Absolute Auto 4.3 x10*3/uL (2.0-8.3); Neutrophils Percent Auto 49.5 % (45-73); Platelet Count 318 X10*3/uL (160-400); Red Blood Count 4.63 X10*6/uL (4.20-5.50); Red Cell Distribution Width 13.4 % (11.0-16.0); White Blood Count 8.6 X10*3/uL (4.8-10.8)
[2023-05-26 10:43] LABS: Estimated Average Glucose 105 mg/dL; Hemoglobin A1c % 5.3 %
[2023-05-26 11:21] LABS: Alanine Aminotransferase 19 U/L (0-31); Albumin Level 4.1 g/dL (3.5-5.0); Alkaline Phosphatase 79 U/L (39-117); Anion Gap 12 (12-20); Aspartate Amino Transferase 16 U/L (5-31); Bilirubin Total 0.3 mg/dL (0.0-1.0); Blood Urea Nitrogen 10 mg/dL (9-16); Calcium 9.2 mg/dL (8.4-10.2); Carbon Dioxide 24 mmol/L (22-29); Chloride 106 mmol/L (96-108); Cholesterol 242 mg/dL; Estimated Glomerular Filt Rate > 60; Glucose Random 104 mg/dL (60-115); HDL Cholesterol 38 mg/dL; LDL Cholesterol Calculated 142 mg/dl; Sodium 138 mmol/L (135-145); Total Protein 7.3 g/dL (6.5-8.0); Triglycerides 314 mg/dL
[2023-05-26 11:22] LABS: Thyroid Stimulating Hormone 0.88 uIU/mL (0.32-4.0)
== END 2023-05-26 09:54 | disposition home or self-care (01) ==
LOC: HO.10HDL 09:53
PROVIDERS: Visit Provider Internal Medicine
DX: Z00.00 Encounter for general adult medical examination without abnormal findings (principal); E78.2 Mixed hyperlipidemia; Z13.31 Encounter for screening for depression
CPT/HCPCS: 36415; 80053; 80061; 83036; 84443; 85025

== ENCOUNTER 2023-10-08 14:14 | Emergency (ER) | payer OTHER, SELFPAY ==
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
[2023-10-08 15:27] VITALS: BP 149/87; PULSE 94; RESP 18; TEMP 36.2; O2SAT 99; BMI 36.1
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
[2023-10-08 18:01] VITALS: BP 146/76; PULSE 90; RESP 18; O2SAT 99
--- OUTSIDE RECORDS SUMMARY | 2023-10-08 18:11 | XMS_ITS | Patient Health Record ---
Author Name Unknown Organization [facility] Address [address] [place] [id number] Care Team Providers Care Regional Sales Director Name Role Phone Tete Sesay Primary Care Provider UnavailLandon Mcgarry Unavailable [phone] ALLERGIES Allergen (clinical drug ingredient) Drug/Non Drug Allergy documented on EMR Reaction Allergy Type Onset Date Status penicillin G Penicillin G Sodium Unknown Drug Allergy Active REASON FOR REFERRAL No Information MEDICATIONS Medication SIG (Take, Route, Frequency, Duration) Notes Start Date End Date Status Active IMMUNIZATIONS Vaccine Route Administration Date Status Comme nts Influenza Unknown 06/20/2020 Administered SOCIAL HISTORY Tobacco Use: Social History Observation Description Date Details (start date - stop date) Never Smoker NA - NA Sex Assigned At : Social History Observation Description Sex Assigned At Unknown Tobacco Use/Smoking Question Answer Notes Patient is a nonsmoker Alcohol Screen Question Answer Notes Did you have a drink containing alcohol in the p ast year? No Points 0 Interpretation Negative PROBLEMS Problem Type ICD Code Onset Dates Problem Status W/U Status Risk SNOMED Code Notes Problem Diarrhea (R19.7) Active confirmed Diarrhea (48134563) Problem Rectal bleeding (K62.5) Active confirmed Rectal bleeding (76286477) PLAN OF TREATMENT Pending Test Test Name Order Date Pathology 01/01/2021 Future Test Test Name Order Date COLONOSCOPY 12/20/2020 Insurance Providers Payer Name Payer Address Payer Phone Subscriber Number Group Number Insured Name Patient Relationship to Insured Coverage Start Date Coverage End Date [facility] [address] [address] [place], [place] [id number] CARREON, ELIASNID Self - patient is the insured MEDICAL (GENERAL) HISTORY Medical History History ICD Code Kidney stones Denies ID,DM,CVA,Lung disease,renal dise ase Surgical History Surgery Date(Month/Year) [facility] 2011 INTERNAL AND EXTRENAL HEMORRHOID REMOVAL -Dr. Dominguez 2016
[2023-10-08] MEDS: Ketorolac Tromethamine 15 MG/ML VIAL IM (18:13)
[2023-10-08] MEDS: Cyclobenzaprine HCl 5 MG TABLET PO (18:14)
== END 2023-10-08 18:22 | disposition home or self-care (01) ==
PROVIDERS: Emergency Provider Emergency Medicine; PCP Internal Medicine
DX: S13.4XXA Sprain of ligaments of cervical spine, initial encounter (principal); R51.9 Headache, unspecified; R07.89 Other chest pain; M54.2 Cervicalgia; V43.52XA Car driver injured in collision with other type car in traffic accident, initial encounter; Y93.9 Activity, unspecified; Y92.410 Unspecified street and highway as the place of occurrence of the external cause; Y99.9 Unspecified external cause status
CPT/HCPCS: 70450; 71045; 72125; 96372; 99283; 99284; J1885

== ENCOUNTER 2024-12-27 15:35 | Emergency (ER) | payer OTHER, SELFPAY ==
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
[2024-12-27 15:44] VITALS: BP 143/91; PULSE 76; RESP 18; TEMP 36.6; O2SAT 98; BMI 36.6
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
[2024-12-27 16:07] LABS: MANUAL DIFF FLAG NO
[2024-12-27 16:09] LABS: Basophils Percent Auto 0.5 % (0-2); Eosinophils Absolute Auto 0.1 X10*3/uL (0.0-0.4); Eosinophils Percent Auto 1.7 % (0-4); Hematocrit 38.1 % (37.0-47.0); Hemoglobin 12.8 g/dl (12.0-16.0); Imm Gran Abs Auto 0.03 X10*3/uL (0.00-0.03); Imm Gran Pct Auto 0.4 % (0.0-0.4); Lymphocytes Percent Auto 36.4 % (20-40); Mean Corpuscular HGB Conc 33.6 g/dl (31.0-35.0); Mean Corpuscular Hemoglobin 29.4 pg (27.0-33.0); Mean Corpuscular Volume 87.4 fL (80.0-98.0); Mean Platelet Volume 9.4 fL (9.4-12.3); Monocytes Absolute Auto 0.7 X10*3/uL (0.1-1.2); Monocytes Percent Auto 8.6 % (2-11); Neutrophils Absolute Auto 4.4 x10*3/uL (2.0-8.3); Neutrophils Percent Auto 52.4 % (45-73); Platelet Count 303 X10*3/uL (160-400); Red Blood Count 4.36 X10*6/uL (4.20-5.50); Red Cell Distribution Width 13.5 % (11.0-16.0); White Blood Count 8.3 X10*3/uL (4.8-10.8)
[2024-12-27 16:32] LABS: Alanine Aminotransferase 20 U/L (0-31); Albumin Level 3.9 g/dL (3.5-5.0); Anion Gap 10 (12-20); Aspartate Amino Transferase 23 U/L (5-31); Bilirubin Total 0.3 mg/dL (0.0-1.0); Blood Urea Nitrogen 8 mg/dL (9-16); Calcium 9.1 mg/dL (8.4-10.2); Carbon Dioxide 25 mmol/L (22-29); Chloride 109 mmol/L (96-108); Creatinine Clr Calc Pharmacy 112.5; Estimated Glomerular Filt Rate > 60; Glucose Random 137 mg/dL (60-115); Lipase 25 U/L (8-78); Magnesium 1.9 mg/dL (1.6-2.6); Potassium 4.1 mmol/L (3.3-5.1); Sodium 140 mmol/L (135-145); Total Protein 7.4 g/dL (6.5-8.0)
[2024-12-27 17:35] LABS: Alkaline Phosphatase 71 U/L (39-117)
[2024-12-27 22:08] VITALS: BP 155/84; PULSE 84; RESP 16; TEMP 36.8; O2SAT 97
--- OUTSIDE RECORDS SUMMARY | 2024-12-27 22:13 | XMS_ITS | Clinical Summary ---
Author Organization [facility] it Address [address] [place] [address] Care Team Providers Care Receiving Coordinator Name Role Phone Tete Sesay MD Primary Care Provider Surgical History Surgery Date Site/Laterality Comments CERVICAL BIOPSY W/ LOOP ELECTRODE EXCISION PROCEDURE: MS CONIZATION CERVIX W/WO D&C RPR ELTRD EXC Medical History Medical History Date Comments Anxiety depression DX:Anxiety Social History Tobacco Use Types Packs/Day Years Used Date Smoking Tobacco: Former Smokeless Tobacco: Never Comments Unknown Sex and Gender Information Value Date Recorded Sex Assigned at Not on file Legal Sex Female 2:15 AM EST Gender Identity Not on file Sexual Orientation Not on file Obstetrics History Plan of Treatment Health Maintenance Due Date Last Done Comments DTaP,Tdap,and Td Vaccines (1 - Tdap) 2005 Hepatitis B Vaccines (1 of 3 - 19+ 3-dose series) 2005 Cervical Cancer Screening: P ap Smear 2007 COVID-19 Vaccine ( - 2023-2 5 season) 2024 Influenza Vaccine (#1) 2024 HIB Vaccines Aged Out No longer eligi ble based on patient's age to complete this topic HPV Vaccines Aged Out No longer eligi ble based on patient's age to complete this topic Hepatitis A Vaccines Aged Out No long er eligible based on patient's age to complete this topic IPV Vaccines Aged Out No longer eligi ble based on patient's age to complete this topic MMR Vaccines Aged Out No longer eligi ble based on patient's age to complete this topic Meningococcal ACWY Vaccine Aged Out N o longer eligible based on patient's age to complete this topic Meningococcal B Vacine Aged Out No lo nger eligible based on patient's age to complete this topic Pneumococcal Vaccine: Pediat rics (0 to 5 Years) and At-Risk Patients (6 to 64 Years) Aged Out No longer eligible b ased on patient's age to complete this topic RSV Immunization Patients Un abdi 20 months Aged Out No longer eligible b ased on patient's age to complete this topic Varicella Vaccines Aged Out No longer eligible based on patient's age to complete this topic Care Teams Receiving Coordinator Relationship Specialty Start Date End Date Tete Sesay MD [address] [facility] [address] [place], [place] PCP - General Internal Medicine 03/17/20
[2024-12-27 22:53] LABS: Appearance Urine Clear; Color Urine Yellow; Glucose Urine UA Negative (Negative); Leukocyte Esterase Urine Negative (Negative); Nitrite Urine Negative (Negative); UPreg QC Valid YES; Urine Blood Negative (Negative); Urine Ketones Negative (Negative); Urine Pregnancy NEGATIVE (NEGATIVE); Urine Protein Negative (Neg-Trace)
[2024-12-28] MEDS: Post Exposure Medication Kit 1 KIT PO (00:35)
[2024-12-28 01:02] VITALS: BP 155/84; PULSE 84; RESP 16; TEMP 36.8; O2SAT 97
[2024-12-28 08:09] LABS: HBS Num1 42.64 mIU/mL (0-7.99); HBc Num1 0.07 S/CO (0.00-0.79); HBsAGNum1 0.39 S/CO (0.00-0.99); HIV AB/AG Nonreactive (Nonreactive); HIV Num 1 0.05 S/CO (0.00-0.99); Hepatitis A Antibody IgM 0.14 Index (0-0.79); Hepatitis B Core Antibody Nonreactive (Nonreactive); Hepatitis B Surface Antigen Negative (Negative); ~HepC Num1 0.08 S/CO (0.00-0.79); ~Hepatitis A Antibody IgM Nonreactive (Nonreactive); ~Hepatitis B Surface Antibody REACTIVE (Nonreactive); ~Hepatitis C Antibody Nonreactive (Nonreactive)
== END 2024-12-28 01:03 | disposition home or self-care (01) ==
PROVIDERS: Physician Assistant Medical; Emergency Provider Emergency Medicine
DX: S60.419A Abrasion of unspecified finger, initial encounter (principal); T14.8XXA Other injury of unspecified body region, initial encounter; Y04.2XXA Assault by strike against or bumped into by another person, initial encounter; M54.50 Low back pain, unspecified; M25.522 Pain in left elbow; M25.572 Pain in left ankle and joints of left foot; Z77.21 Contact with and (suspected) exposure to potentially hazardous body fluids; Y93.01 Activity, walking, marching and hiking; Y92.410 Unspecified street and highway as the place of occurrence of the external cause; Y99.9 Unspecified external cause status
CPT/HCPCS: 36415; 71046; 73080; 73610; 73630; 80053; 81003; 81025; 83690; 83735; 85025; 86704; 86706; 86709; 86803; 87340; 87389; 99283

== ENCOUNTER → 2024-12-27 15:47 | Outpatient (BNV) | payer OTHER, SELFPAY | PROVIDERS: Visit Provider Radiology Diagnostic Radiology | DX: R07.1 Chest pain on breathing (principal); R22.42 Localized swelling, mass and lump, left lower limb; M25.522 Pain in left elbow; M25.572 Pain in left ankle and joints of left foot; W19.XXXA Unspecified fall, initial encounter | CPT/HCPCS: 71046; 73080; 73610; 73630 ==

== ENCOUNTER 2025-05-12 18:00 | Emergency (ER) | payer OTHER, SELFPAY ==
--- NOTE | ~2025-05-12 | XR_ITS ---
CLINICAL HISTORY: pain 3 view left ankle Comparison: 12/27/2024 04:46 PM EDT: CRSR: XR ANKLE LT MIN 3V (03:46 PM CDT) Findings: No acute fractures or dislocations. Soft tissue swelling over the medial malleolus. No ankle effusion. No radiopaque foreign body. IMPRESSION: 1. No acute findings. This document has been electronically signed by: Bennie Shea MD on 05/12/2025 19:08:44
--- NOTE | ~2025-05-12 | US_ITS ---
CLINICAL HISTORY: Swelling; Pain Venous duplex ultrasound bilateral lower extremity Comparison: None provided Findings: The visualized deep veins are fully compressible with normal Doppler color flow and spectral tracings. No popliteal cyst. IMPRESSION: 1. Negative for bilateral lower extremity deep vein thrombosis. This document has been electronically signed by: Patrick Avendaño MD, PHD on 05/13/2025 02:14:28
--- NOTE | ~2025-05-12 | XR_ITS ---
CLINICAL HISTORY: pain 3 view left foot Comparison: CR/SR - XR FOOT LT MIN 3V - 12/27/24 16:47 EDT Findings: Bones intact. No dislocations. No significant arthritic change or erosions. No ankle effusion. No radiopaque foreign body. IMPRESSION: 1. No acute findings. This document has been electronically signed by: Bennie Shea MD on 05/12/2025 19:11:03
[2025-05-12 18:20] VITALS: BP 125/80; PULSE 104; RESP 16; TEMP 36.3; O2SAT 92; BMI 40.0
--- NOTE | 2025-05-12 18:30 | ED_ITS ---
HPI - General Adult General Chief complaint: Extremity Problem Stated complaint: left foot swollen couple days ago / cellulitis? Time Seen by Provider: 05/12/25 23:31 Source: patient Mode of arrival: ambulatory Limitations: no limitations History of Present Illness ED Provider: Kobe DIAZ HPI narrative: The patient is a 39-year-old female presenting to the ED for evaluation of intermittent waxing and waning left foot and ankle swelling with associated petechial rash over the past 2 months. Patient reports however over the past 2 days the severity of swelling and rash increased and she developed pain with weight-bearing on the left foot. Patient reports she also now is experiencing some less severe rash and swelling of the right lower extremity. Patient reports while in the ED she has now developed associated pleurisy described as a sharp pain in the right scapula radiating towards the right anterior chest, worse with deep respiration. The patient denies associated fever/chills, nausea, vomiting, shortness of breath, cough, hemoptysis, abdominal pain, urinary symptoms, recent sick contacts, or recent trauma. The patient denies recent travel, use of control, or history of coagulopathy. Related Data Previous Rx's ?Medication ?Instructions ?Recorded cyclobenzaprine 5 mg tablet 5 mg PO TID PRN muscle spa sm 7 10/08/23 days #21 tabs emtricitabine 200 mg-tenofovir 1 tab PO DAILY #5 tabs 12/28/24 disoproxil fumarate 300 mg tablet (Truvada) raltegravir 400 mg tablet 400 mg PO BID #10 tabs 12/28 (Isentress) Allergies Allergy/AdvReac Type Severity Reaction Status Date / Time penicillin G (Penicillin G) Allergy Severe DIFFICULTY Verified 05/12/25 18:20 BREATHING penicillin V Allergy Severe shortness Verified 05/12/25 18:20 of breath, anaphylaxis Review of Systems 2 Review of Systems: Yes all other systems are reviewed and are negative PMFSH Past Medical History Medical History Vasovagal episode Appendicitis Dehydration Threatened Lactating mother Family planning Anxiety Hx of renal calculi Surgical History Status post laparoscopic appendectomy S/P laparoscopic appendectomy History of laparoscopic appendectomy (~07/25/22) Hx of hemorrhoidectomy Family History Family History Maternal Aunt Uterine cancer Social History Social History (System 11/14/23 @ 12:24 by Grazyna Clark) Household Members: Significant Other and Children Housing: House Do you presently have visiting nurse or other home services: No Alcohol intake: never Patient Tobacco Use Status: Never used Tobacco Substance Use Type: Marijuana Advance Directives: No Advance Directives Information Provided: No service: No Current occupational status: employed Physical Exam ED Vital Signs: Vital Signs - 24 hr 05/12/25 18:20 05/12/25 20:00 05/13/25 00:00 Temperature 97.4 F 98.8 F 97.7 F Pulse Rate 104 H 85 62 Respiratory Rate 16 18 18 Blood Pressure 125/80 135/85 143/80 H Pulse Oximetry 92 97 96 Oxygen Delivery Method Room Air Room Air Room Air BMI result Body Mass Index 40.0 CONSTITUTIONAL: The patient appears non-toxic, well nourished and in no acute distress. Vital signs as documented. HEAD: Atraumatic, normocephalic. EYES: EOMs grossly intact, pupils equal, conjunctiva clear, no exudate. ENT: Nares patent, no discharge. Airway patent, no audible stridor, visible mucosa is pink and moist without noted lesions. NECK: Trachea is midline, no obvious masses or gross abnormalities. CHEST: Symmetric movement, normal appearance. LUNGS: LS present and CTAB, no w/r/r. Non-labored work of breathing. CARDIAC: Regular Rhythm, S1/S2 appreciated, no murmurs, rubs or gallops. ABDOMEN: Abdomen soft and non-tender x4 quadrants, no palpable masses or organomegaly. : Deferred. EXTREMITIES: The bilateral lower extremities demonstrate moderate edema, left lower extremity demonstrates 2+ nonpitting edema with associated petechial rash primarily at the sock line of the medial ankle. The right lower extremity demonstrates 1+ nonpitting edema with scant similar rash noted in the same location. Distal CSM is intact, 2+ DP/PT pulses bilaterally, no sensory deficit, strength 5/5 bilaterally. Normal tone, moves all extremities spontaneously without reported pain. No obvious acute injury or deformity noted. NEURO: Alert and oriented x3, CN II-XII appear grossly intact. Cerebellar Functioning grossly intact. No obvious sensory or motor deficits. Speech clear and appropriate. PSYCH: normal affect, appropriate eye contact, fluid speech, with appropriate response to questioning. No reported suicidality or homicidality. SKIN: Warm, dry, color appropriate, normal turgor. No rashes noted. Course Course Course Narrative: This is an RME: Additional HPI, ROS, PE not included below will be deferred to primary provider. RME assessment and note performed by: Ethel Fernandes PA-C This is a 39-year-old female presents emergency department with concerns of left foot pain and petechial rash on bilateral calves, left greater than right. Reporting unable to bear weight on her foot secondary to pain. Patient has ? Petechial rash noted to her left ankle. Plan: Labs, x-rays, further ER evaluation needed. Medical Decision Making Medical Decision Making MDM Narrative: 12:08 AM 05/13/2025 (Radha DIAZ): The patient is a 39-year-old female presenting to the ED for evaluation of exacerbation of left lower extremity swelling with associated petechial rash which has been ongoing for the past 2 months but increased over the past 2 days and now occurring on the right lower extremity to a less severe extent. The patient also reports developing right- sided pleuritic scapular and chest pain while here in the ED. the patient's chest discomfort is not reproducible with palpation. The patient's exam shows bilateral lower extremity edema worse on the left, with associated petechial rash at the sock line without ecchymosis or evidence of cellulitis. The patient's laboratory evaluation shows no evidence of leukocytosis, significant anemia, electrolyte abnormality, or ANIA. The patient's foot and ankle x-rays are negative for acute pathology. The patient will be sent for an ultrasound of the bilateral lower extremities. If ultrasound shows evidence of DVT, we will obtain a CTA chest, if no evidence of DVT we will perform D-dimer to rule out PE as the source of the patient's pleuritic pain. 3:34 AM 05/13/2025 (Radha DIAZ): The patient's chest pain resolved spontaneously and has not reoccurred. The patient's ultrasound was negative for DVT, a D-dimer was added and is negative. Patient's swelling may be secondary to dependent edema. Patient will be discharged to follow up with PCP for further evaluation. Admission/Observation Consideration of admission/observation: Escalation of care including admission/observation considered Lab Data MDM Lab Attestation statement: I reviewed the patient's lab results. 05/12/25 19:29 05/12/25 19:29 Labs: Lab Results 05/12/25 05/13/25 Range/Units 19:29 02:40 WBC 9.4 (4.8-10.8) X10*3/uL RBC 4.05 L (4.20-5.50) X10*6/uL Hgb 12.0 (12.0-16.0) g/dl Hct 35.2 L (37.0-47.0) % MCV 86.9 (80.0-98.0) fL MCH 29.6 (27.0-33.0) pg MCHC 34.1 (31.0-35.0) g/dl RDW 13.2 (11.0-16.0) % Plt Count 291 (160-400) X10*3/uL MPV 9.1 L (9.4-12.3) fL Immature Gran % (Auto) 0.5 H (0.0-0.4) % Neut % (Auto) 52.2 (45-73) % Lymph % (Auto) 36.3 (20-40) % [place] % (Auto) 8.7 (2-11) % Eos % (Auto) 1.8 (0-4) % Baso % (Auto) 0.5 (0-2) % Lymph # (Auto) 3.4 (1.2-4.9) X10*3/uL [place] # (Auto) 0.8 (0.1-1.2) X10*3/uL Eos # (Auto) 0.2 (0.0-0.4) X10*3/uL Baso # (Auto) 0.1 (0.0-0.2) X10*3/uL Abs Immat Gran (auto) 0.05 H (0.00-0.03) X10*3/uL Absolute Neuts (auto) 4.9 (2.0-8.3) x10*3/uL Absolute Nucleated RBC 0.000 (0.0-0.012) X10*3/uL Nucleated RBC % (auto) 0.0 (0.0-0.2) /100WBC D-Dimer High Sensitivty < 150 NG/ML Sodium 140 (135-145) mmol/L Potassium 3.8 (3.3-5.1) mmol/L Chloride 107 (96-108) mmol/L Carbon Dioxide 25 (22-29) mmol/L Anion Gap 12 (12-20) BUN 16 (9-16) mg/dL Creatinine 0.85 (0.5-1.4) mg/dL Estim Creat Clear Calc 98.8 Estimated GFR > 60 Random Glucose 109 (60-115) mg/dL Calcium 8.7 (8.4-10.2) mg/dL Total Bilirubin 0.2 (0.0-1.0) mg/dL AST 23 (5-31) U/L ALT 23 (0-31) U/L Alkaline Phosphatase 78 (39-117) U/L Total Protein 6.9 (6.5-8.0) g/dL Albumin 4.2 (3.5-5.0) g/dL Radiology Impression Discussion of test interpretation with radiology: I have reviewed the radiologist's reading. Radiologist Impression: 3 view left foot Comparison: CR/SR - XR FOOT LT MIN 3V - 12/27/24 16:47 EDT Findings: Bones intact. No dislocations. No significant arthritic change or erosions. No ankle effusion. No radiopaque foreign body. IMPRESSION: 1. No acute findings. This document has been electronically signed by: Bennie Shea MD on 05/12/2025 19:11:03 3 view left ankle Comparison: 12/27/2024 04:46 PM EDT: CRSR: XR ANKLE LT MIN 3V (03:46 PM CDT) Findings: No acute fractures or dislocations. Soft tissue swelling over the medial malleolus. No ankle effusion. No radiopaque foreign body. IMPRESSION: 1. No acute findings. This document has been electronically signed by: Bennie Shea MD on 05/12/2025 19:08:44 Tests considered The following testing was considered but not selected: CTA Chest Discharge Plan Discharge Clinical Impression: Lower extremity edema Patient Disposition: Home, Self-Care Instructions: Leg Edema (ED) Additional Instructions: Thank you for choosing [facility]'s Emergency Department for your care today. Thankfully your laboratory evaluation, x-rays, and exam today show no evidence of any acute emergent process requiring admission to the hospital or continued ED observation, and it is safe to discharge you home. The exact cause of your lower extremity swelling over the past 2 months is not entirely clear. It may be secondary to dependent pull of fluid secondary to gravity. Please keep your legs elevated at night and as much as possible throughout the day. Please avoid high salt foods as this will increased fluid retention. Please follow up with your primary care physician for re-evaluation, additional investigation to the source of your symptoms, additional management of your symptoms, and continued preventative care. If you do not have a primary care physician, please call the [facility] at [phone] to establish a new primary care physician. While waiting to establish your new primary care physician, you can call our [facility] at [phone] for non-emergency needs. Please return to the emergency department if you develop a severe or sudden change in your symptoms, a fever over 100.4 that does not improve with Tylenol or Ibuprofen, recurrent vomiting, or any other new or worsening symptoms or concerns. Prescriptions: No Action Isentress 400 mg tablet 400 mg PO BID Qty: 10 0RF emtricitabine-tenofovir (TDF) [Truvada] 200-300 mg tablet 1 tab PO DAILY Qty: 5 0RF cyclobenzaprine 5 mg tablet 5 mg PO TID PRN (Reason: muscle spasm) 7 Days Qty: 21 0RF Referrals: Casper White CNP [Primary Care Provider, Internal Medicine] Clinical Impression: Lower extremity edema Print Language: Amharic
[2025-05-12 19:34] LABS: MANUAL DIFF FLAG NO
[2025-05-12 19:35] LABS: Hematocrit 35.2 % (37.0-47.0); Hemoglobin 12.0 g/dl (12.0-16.0); Imm Gran Abs Auto 0.05 X10*3/uL (0.00-0.03); Imm Gran Pct Auto 0.5 % (0.0-0.4); Lymphocytes Absolute Auto 3.4 X10*3/uL (1.2-4.9); Mean Corpuscular HGB Conc 34.1 g/dl (31.0-35.0); Mean Corpuscular Hemoglobin 29.6 pg (27.0-33.0); Mean Corpuscular Volume 86.9 fL (80.0-98.0); NRBC Abs Auto 0.000 X10*3/uL (0.0-0.012); NRBC Pct Auto 0.0 /100WBC (0.0-0.2); Platelet Count 291 X10*3/uL (160-400); Red Blood Count 4.05 X10*6/uL (4.20-5.50); White Blood Count 9.4 X10*3/uL (4.8-10.8)
[2025-05-12 19:50] LABS: Alanine Aminotransferase 23 U/L (0-31); Albumin Level 4.2 g/dL (3.5-5.0); Alkaline Phosphatase 78 U/L (39-117); Anion Gap 12 (12-20); Aspartate Amino Transferase 23 U/L (5-31); Blood Urea Nitrogen 16 mg/dL (9-16); Calcium 8.7 mg/dL (8.4-10.2); Carbon Dioxide 25 mmol/L (22-29); Chloride 107 mmol/L (96-108); Creatinine Clr Calc Pharmacy 98.8; Estimated Glomerular Filt Rate > 60; Potassium 3.8 mmol/L (3.3-5.1); Sodium 140 mmol/L (135-145); Total Protein 6.9 g/dL (6.5-8.0)
[2025-05-12 20:00] VITALS: BP 135/85; PULSE 85; RESP 18; TEMP 37.1; O2SAT 97
[2025-05-13] VITALS: BP 143/80; PULSE 62; RESP 18; TEMP 36.5; O2SAT 96
[2025-05-13 03:01] LABS: D Dimer High Sensitivity < 150 NG/ML
[2025-05-13 03:41] VITALS: BP 120/79; PULSE 69; RESP 18; TEMP 36.4; O2SAT 96
[2025-05-13 03:51] VITALS: BP 120/79; PULSE 69; RESP 18; TEMP 36.4; O2SAT 96
== END 2025-05-13 03:51 | disposition home or self-care (01) ==
PROVIDERS: Physician Assistant; Physician Assistant Medical; Emergency Provider Internal Medicine; PCP Nurse Practitioner Family
DX: R23.3 Spontaneous ecchymoses (principal); R60.9 Edema, unspecified; R07.89 Other chest pain
CPT/HCPCS: 36415; 73610; 73630; 80053; 85025; 85379; 93970; 99284

== ENCOUNTER → 2025-05-12 18:31 | Outpatient (BNV) | payer OTHER, SELFPAY | PROVIDERS: Visit Provider Radiology Diagnostic Radiology | DX: M70.872 Other soft tissue disorders related to use, overuse and pressure, left ankle and foot (principal); M79.672 Pain in left foot | CPT/HCPCS: 73610; 73630 ==

== ENCOUNTER → 2025-05-13 01:24 | Outpatient (BNV) | payer OTHER, SELFPAY | PROVIDERS: Emergency Provider Internal Medicine; PCP Nurse Practitioner Family; Visit Provider General Practice | DX: M79.661 Pain in right lower leg (principal); M79.662 Pain in left lower leg; R22.43 Localized swelling, mass and lump, lower limb, bilateral | CPT/HCPCS: 93970 ==